=== PATIENT | female | born 1960 | race Caucasian/White ===

== ENCOUNTER 2024-10-02 14:44 | Outpatient (CLI) | payer MEDICARE, OTHER, SELFPAY ==
[2024-10-02 19:24] LABS: Hematocrit 45.3 % (37.0-47.0); Hemoglobin 15.3 g/dL (12.0-15.0); Mean Corpuscular HGB Conc 33.8 g/dl (32-36); Mean Corpuscular Hemoglobin 30.2 pg (26-34); Mean Corpuscular Volume 89.5 fl (80-100); Mean Platelet Volume 10.9 fl (7.4-10.4); Platelet Count Result 420 k/mm3 (150-375); Red Blood Count 5.06 M/mm3 (4.2-5.4); Red Cell Distribution Width 12.8 % (11.5-14.5); White Blood Count 8.6 K/mm3 (4.5-10.0)
[2024-10-02 19:29] LABS: Alanine Aminotransferase 16 U/L (6-35); Albumin Level 4.2 g/dL (3.5-5.1); Alkaline Phosphatase 101 U/L (38-126); Anion Gap 5 mmol/L (4-12); Aspartate Amino Transferase 68 U/L (14-36); Bilirubin,Total 1.2 mg/dL (0.2-1.3); Blood Urea Nitrogen 16 mg/dL (7-17); Calcium 9.2 mg/dL (8.4-10.2); Carbon Dioxide 30 mmol/L (22-30); Chloride 101 mmol/L (98-107); Cholesterol 135 mg/dL (0-200); Estimated Glomerular Filt Rate > 60; Glucose 101 mg/dL (65-110); HDL Direct 49 mg/dL; Potassium 4.4 mmol/L (3.4-5.0); Sodium 136 mmol/L (137-145); Triglycerides 123 mg/dL (<150)
[2024-10-02 19:51] LABS: LDL Cholesterol Direct 55 mg/dL
[2024-10-02 19:56] LABS: Thyroid Stimulating Hormone < 0.015 uIU/mL (0.465-4.680)
== END 2024-10-02 14:45 | disposition home or self-care (01) ==
PROVIDERS: PCP Nurse Practitioner Adult Health; Visit Provider Nurse Practitioner Adult Health
DX: E66.3 Overweight (principal)
CPT/HCPCS: 36415; 80053; 80061; 84443; 85027

== ENCOUNTER 2024-10-03 15:21 | Outpatient (CLI) | payer MEDICARE, OTHER, SELFPAY ==
[2024-10-03 20:21] LABS: Free T4 Free Thyroxine 1.73 ng/mL (0.78-2.19)
[2024-10-05 14:28] LABS: Thyroid Peroxidase Antibodies 1 IU/mL (<9)
== END 2024-10-03 15:22 | disposition home or self-care (01) ==
PROVIDERS: PCP Nurse Practitioner Adult Health; Visit Provider Nurse Practitioner Adult Health
DX: E07.9 Disorder of thyroid, unspecified (principal); R79.89 Other specified abnormal findings of blood chemistry
CPT/HCPCS: 36415; 84439; 86376

== ENCOUNTER 2024-10-06 10:40 | Outpatient (CLI) | payer MEDICARE, OTHER, SELFPAY ==
--- NOTE | ~2024-10-06 | US_ITS ---
EXAMINATION: US thyroid DATE: 10/06/2024 11:09 INDICATION: Other specified abnormal findings of blood chemistry. Abnormal thyroid function tests. TECHNIQUE: Multiple ultrasound images of the thyroid were obtained. COMPARISON: Chest CT 10/06/2024 FINDINGS: The right thyroid lobe measures 5.1 x 2.2 x 2.1 cm. The left thyroid lobe measures 4.2 x 1.1 x 1.5 c m. In the right thyroid lobe, there is a 1.8 cm solid, hypoechoic, wider than tall nodule with yung h margin without echogenic foci (TI-RADS TR4). In the left thyroid lobe, there is a 4 mm nodule. IMPRESSION: 1. Thyroid nodules. Ultrasound-guided fine-needle aspiration of the 1.8 cm right thyroid nodule is re commended. Reviewed, dictated and finalized at location A. SITTER IMPRESSION: 1. Thyroid nodules. Ultrasound-guided fine-needle aspiration of the 1.8 cm righ t thyroid nodule is recommended.
--- NOTE | ~2024-10-06 | CT_ITS ---
EXAMINATION:CT lung screening DATE: 10/06/2024 10:54 INDICATION: Personal history of nicotine dependence. Current smoker with 50 pack year history. TECHNIQUE: Computed tomography (CT) of the chest was performed without intravenous contrast. Automate d exposure control and iterative reconstruction technique were employed. The dose-length product (DLP ) was 82.22 mGy-cm. COMPARISON: None. FINDINGS: There is mild emphysema. There is mild atelectasis bilaterally. There is a 4 mm nodule at m inor fissure. No pleural effusion. The heart size is normal. No pericardial effusion. There is a 12 m m mass measuring low attenuation in left adrenal gland, consistent with an adenoma. There is severe t horacic spondylosis. IMPRESSION: 1. Lung-RADS category 2: Benign appearance or behavior. Continue annual screening with noncontrast lo w-dose chest CT in 12 months. Reviewed, dictated and finalized at location A. ENTARY EDUCATOR IMPRESSION: 1. Lung-RADS category 2: Benign appearance or behavior. Continue annual screeni ng with noncontrast low-dose chest CT in 12 months.
== END 2024-10-06 10:41 | disposition home or self-care (01) ==
LOC: MICIMG 10:42
PROVIDERS: PCP Nurse Practitioner Adult Health; Visit Provider Nurse Practitioner Adult Health
DX: Z12.2 Encounter for screening for malignant neoplasm of respiratory organs (principal); R79.89 Other specified abnormal findings of blood chemistry; E04.1 Nontoxic single thyroid nodule; Z87.891 Personal history of nicotine dependence
CPT/HCPCS: 71271; 76536

== ENCOUNTER 2024-11-10 12:23 | Outpatient (CLI) | payer MEDICARE, OTHER, SELFPAY ==
--- NOTE | ~2024-11-10 | US_ITS ---
EXAMINATION: US FNA w image guidance DATE: 11/10/2024 13:58 INDICATION: Right thyroid nodule TECHNIQUE: A time-out was performed to verify the patient's name, date of , and procedure to be performed . The procedure and its benefits and risks were discussed with the patient. Risks specifically discus sed included bleeding and infection. The patient understood the risks and agreed to proceed. The neck was prepped and draped in the usual sterile manner. 5 mL 1% lidocaine was used for local anesthesia . 8 passes were made with a 25G needle into the lesion. Appropriate needle location was documented with continuous sonographic guidance. A sterile bandage was applied. Approximately 10 minutes follow ing the conclusion of the procedure I was notified that the patient experienced a brief bout of nause a and vomiting with decrease in blood pressures with systolic blood pressures in the 80s and diastoli c pressures in the 40s. A directed the technologist to place the patient supine with her feet elevate d and then went to see the patient. The patient approximately 2 minutes later at which time this was feeling better with improvement of her nausea and her blood pressures had improved to the lung upper 130s over 80s. The patient was monitored for an additional 20 minutes without further incident and wa s asymptomatic at discharge. FINDINGS: Grayscale ultrasound images demonstrate biopsy needles advanced into the 1.8 cm TI-RADS 4 right thyro id nodule of concern. IMPRESSION: 1. Successful ultrasound-guided fine needle aspiration of the 1.8 cm TI-RADS 4 right thyroid nodule of concern. 2. Brief likely vasovagal episode following the conclusion of the procedure with nausea/vomiting and transient hypotension which resolved spontaneously within a couple minutes. Reviewed, dictated and finalized at location A. ATOR REPAIRER APPRENTICE IMPRESSION: 1. Successful ultrasound-guided fine needle aspiration of the 1.8 cm TI-RADS 4 right thyroid nodule of concern. 2. Brief likely vasovagal episode following the conclusion of the procedure wit h nausea/vomiting and transient hypotension which resolved spontaneously within a couple minutes.
== END 2024-11-10 12:24 | disposition home or self-care (01) ==
LOC: ANHIMG 12:24
PROVIDERS: PCP Nurse Practitioner Adult Health; Visit Provider Nurse Practitioner Adult Health
DX: E04.1 Nontoxic single thyroid nodule (principal)
CPT/HCPCS: 10005; 88172; 88173; 88177; 88305

== ENCOUNTER 2024-11-28 11:20 | Outpatient (CLI) | payer MEDICARE, OTHER, SELFPAY | END 2024-11-28 11:21 | disposition home or self-care (01) | PROVIDERS: PCP Nurse Practitioner Adult Health; Visit Provider Nurse Practitioner Adult Health | DX: R79.89 Other specified abnormal findings of blood chemistry (principal) | CPT/HCPCS: 36415 ==

== ENCOUNTER 2025-04-04 13:34 | Outpatient (CLI) | payer MEDICARE, OTHER, SELFPAY ==
--- NOTE | ~2025-04-04 | XR_ITS ---
3 VIEWS LUMBAR SPINE Ordering provider: Ya Centeno APRN History: . chronic low back pain radiating into hips . Comparison: None. FINDINGS: VERTEBRAL BODIES: No visible fracture or subluxation. Degenerative changes of the spine. Dextroscolio sis. DISK SPACES: Narrowing of all the disc spaces. Multilevel facet joint disease. SOFT TISSUES: Left kidney stone. IMPRESSION: No acute osseous abnormality lumbar spine. Multilevel degenerative disc disease. Dextroscoliosis. Left kidney stone. Reviewed, dictated and finalized at location A.
--- NOTE | ~2025-04-04 | XR_ITS ---
XR hip BI 2V w AP pelvis Ordering provider: Ya Centeno APRN History: . chronic low back pain radiating into hips . Comparison: None. FINDINGS: BONES: No acute fracture or dislocation. HIP JOINT SPACES: Mild osteoarthritic changes bilaterally. SACROILIAC JOINT SPACES/LUMBAR SPINE: The sacroiliac joint spaces are narrowed suggestive of sacroili itis.. Mild degenerative changes of the visualized lower lumbar spine. PUBIC SYMPHYSIS: Normal. SOFT TISSUES: Normal. IMPRESSION: No acute osseous abnormality of the bilateral hips and pelvis. Bilateral sacroiliitis, degenerative changes of the spine and osteoarthritic changes of the hips. Reviewed, dictated and finalized at location A. IMPRESSION: No acute osseous abnormality of the bilateral hips and pelvis. Bilateral sacroiliitis, degenerative changes of the spine and osteoarthritic ch anges of the hips.
== END 2025-04-04 13:35 | disposition home or self-care (01) ==
PROVIDERS: PCP Nurse Practitioner Adult Health; Visit Provider Nurse Practitioner Adult Health
DX: M51.360 Other intervertebral disc degeneration, lumbar region with discogenic back pain only (principal); M41.9 Scoliosis, unspecified; N20.0 Calculus of kidney
CPT/HCPCS: 72100; 73521

== ENCOUNTER 2025-04-18 12:32 | Outpatient (CLI) | payer MEDICARE, OTHER, SELFPAY ==
--- NOTE | ~2025-04-18 | CT_ITS ---
Non-contrast CT scan of the Abdomen and Pelvis Clinical indication: Kidney stone Technique: 2.5 mm axial scans were obtained through the abdomen and pelvis without intravenous or or al contrast. Dose reduction technique was used on this scan by utilizing automated exposure control a nd iterative reconstruction technique. The dose-length product (DLP) was 337.42 mGy-cm. Findings: Images through the lung bases reveal no abnormalities. There is medullary nephrocalcinosis bilaterally. 6 mm round nonobstructing left lower pole renal ston e present. No ureteral stone or hydronephrosis. The liver, spleen, pancreas, gallbladder, and right adrenal gland appear normal. There is low signal thickening of the left adrenal gland, either adenoma versus adrenal hyperplasia. There are atheroscle rotic calcifications of the aorta. . There is no evidence of bowel obstruction. Images through the pelvis were performed. There is no evidence of ascites or lymphadenopathy. Urinary bladder unremarkable. No pelvic mass seen. Impression: 6 mm nonobstructing left renal stone. Medullary nephrocalcinosis bilaterally. Reviewed, dictated and finalized at location . Impression: 6 mm nonobstructing left renal stone. Medullary nephrocalcinosis bilaterally.
--- OUTSIDE RECORDS SUMMARY | 2025-04-18 12:37 | XMS_ITS | Encounter Summary ---
Author Organization [facility] Address [address] [facility] [place] [address] Care Team Providers Care Low Voltage Technician Name Role Phone Unavailable Primary Care Provider Unavailabl e Reason for Visit * Reason Onset Date Comments Concerns 03/14/2024 Encounter Details Date Type Department Care Team (Late st Contact Info) Description 03/14/2024 Telephone [facility] [place] [facility] [facility] [address] [facility] [address] [place] [address] Crystal Busby MD [address] [place] [address] Concerns Social History Tobacco Use Types Packs/Day Years Used Date Smoking Tobacco: Every Day Cigarettes Smokeless Tobacco: Never Comments:Smoked 20+ years Alcohol Use Standard Drinks/Week Comments Never 0 (1 standard drink = 0.6 oz pur e alcohol) Comments No Sex and Gender Information Value Date Recorded Sex Assigned at Not on file Legal Sex Female 8:24 AM CDT Gender Identity Not on file Sexual Orientation Not on file documented as of this encounter Miscellaneous Notes * Telephone Encounter - Jim Redding RN - 03/14/2024 4:46 PM CDT Ms. Jeffers given Dr Busby's response. Fine to go back after 4 weeks. Will write letter w/ RTW date of 04/04. She would like it emailed to : [email or web address] Letter written and emailed. 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 Would like to know when she can go back to work. She never addressed this issue with her. She is fine if she has to be off 6 weeks if needed. She states she wants to do what Dr Busby feels is best. She doesn't want to do any damage to her surgical area. She is doing well, but bored. I thanked her for being so compliant! That is really appreciated. Will send to Dr Busby. Will call Harrison Aury back with Dr Busby's reply. * Telephone Encounter - Bianca Parks - 03/14/2024 2:23 PM CDT Patient called in because she had surgery Wednesday the patient wants to know when she can be cleared to go back to work. Thank You Bianca CB: [phone] documented in this encounter Plan of Treatment Not on file documented as of this encounter Visit Diagnoses Not on filedocumented in this encounter
--- OUTSIDE RECORDS SUMMARY | 2025-04-18 12:37 | XMS_ITS | Patient Health Record ---
Author Organization [facility] Address [address] [facility] [address] [place], [place] [address] Care Team Providers Care Sales Training Manager Name Role Phone Barry Chamorro Unavailable [phone] Migration, Provider Unavailable Unavailable Allergies Allergen (clinical drug ingredient) Drug/Non Drug Allergy documented on EMR Reaction Allergy Type Onset Date Status ciprofloxacin Cipro Unknown Drug Allergy Act sophia Reason For Referral No Information Medications Medication SIG (Take, Route, Frequency, Duration) Notes Start Date End Date Status ASTELIN 137 MCG/INH 2 SPRAY(S) INTRANASALLY BID for 30 DAY(S) *Please review for potential replacement for e-prescription and drug interaction check* 01/31/2020 Active EPIPEN 2-AUSTEN, RXBIN: [id number], RXPCN: LOYALTY, RX GRP: [id number], ULTRASOUND SPEC: [id number], ID: [id number] 0.3 MG 0.3 MG INTRAMUSCULARLY ONCE for 1 DOSE(S) *Please review for potential replacement for e-prescription and drug interaction check* Active Immunizations Vaccine Route Administration Date Status Comme nts Influenza Unknown 12/03/2016 Administered Influenza Unknown 12/23/2016 Refused Problems Problem Type SNOMED Code ICD Code Onset Dates Problem Status W/U Status Risk Notes Problem 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, 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 confirmed Problem Allergic rhinitis caused by pollen (disorder) (28393770) Allergic rhinitis due to pollen (J30.1) Active confirmed Problem Neoplasm of uncertain behavior of skin (56452788) 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.5) Active confirmed Problem Bilateral tinnitus (9596707056782 ) Tinnitus, bilateral (H93.13) Active confirmed Problem Allergic rhinitis caused by animal hair and dander (8869516001506 09) Allergic rhinitis due to animal (cat) (dog) hair and dander (J30.81) Active confirmed Problem Sensorineural hearing loss, unilateral, right ear, with unrestricted hearing on the contralateral side (H90.41) Active confirmed Problem Tinnitus (73938133) Tinnitus, right ear (H93.11) Active confirmed Encounters Encounter Location Date Provider Diagnosis [facility] [address] [place] [address] [place], [place] [address] 11/04/2024 Provider Migration Plan Of Treatment No Information Insurance Providers Payer Name Payer Address Payer Phone Subscriber Number Group Number Insured Name Patient Relationship to Insured Coverage Start Date Coverage End Date [employer] [address] [place] [address] [id number] Aury Moura Self - patient is the insured Medical (General) History Medical History History ICD Code eye, sinusitis, allergies, ear problems Surgical History Surgery Date(Month/Year)
--- OUTSIDE RECORDS SUMMARY | 2025-04-18 12:37 | XMS_ITS | Clinical Summary ---
Author Organization [facility] Medical Office Building B Address [address] [place] [address] Care Team Providers Care Pulverizer Operator Name Role Phone Ya Centeno NP Primary Care Provider [phone] Allergies Active Allergy Reactions Criticality Noted Date Comments Ciprofloxacin Nausea And Vomiting,Nausea only,Rash,Vomiting,Nause a & Vomiting Medium 09/28/2023 Reaction: Nausea, Vomiting, Reaction: Nausea, Vomiting, Medications Lumigan 0.01 % ophthalmic drops 3 Active triamcinolone (KENALOG) 0.1 % creamIndications: Skin Inflammation Apply topically 2 (two) times a day 30 g 1 4 Active estradiol-norethi ndrone (ACTIVELLA) 0.5-0.1 mg per tablet TAKE 1 TABLET BY MOUTH DAILY 84 tablet 2 5 02/08/20 26 Active Active Problems Problem Noted Date Diagnosed Date Pruritic condition 11/06/2024 Overview (11/06/2024): Left breast only with unknown etiology. Assessment & Plan (11/06/2024 12:34 PM PULVERIZER OPERATOR): States triamcinolone cream does help some. She would rather have cream instead of ointment, new prescription sent to pharmacy. Urge incontinence 09/28/2023 Skin hypopigmentation 09/28/2023 Hormone replacement therapy (HRT) 11/25/2021 Assessment & Plan (11/06/2024 12:26 PM PULVERIZER OPERATOR): Risks and benefits of hormone replacement (HRT) for vasomotor symptoms related to menopause discussed. Patient aware risks associated with HRT include increased risk of blood clots, heart attack, stroke, and increased risk of breast cancer. Patient verbalizes understanding of risk and benefits and wishes to proceed with HRT. - Continue oral combined hormone therapy, Activella. Patient/pharmacy will notify office when refills needed. Assessment & Plan (09/28/2023 10:11 AM PULVERIZER OPERATOR): Patient states she does not need any refills on her Activella at this time. Risks and benefits of hormone replacement (HRT) for vasomotor symptoms related to menopause discussed. Patient aware risks associated with HRT include increased risk of blood clots, heart attack, stroke, and increased risk of breast cancer. Patient verbalizes understanding of risk and benefits and wishes to proceed with HRT. Assessment & Plan (09/22/2022 10:04 AM CDT): Risks vs benefits of HRT discussed such as increased risk of blood clots leading to possible heart attack, stroke, and increased risk of breast cancer; pt. verbalizes understanding and wishes to continue with HRT. Continue yearly screening mammograms. Refill on Activella sent to patient's pharmacy. Assessment & Plan (11/25/2021 8:30 AM PULVERIZER OPERATOR): Risks vs benefits of HRT discussed such as increased risk of blood clots leading to possible heart attack, stroke, and increased risk of breast cancer; pt. verbalizes understanding and wishes to proceed with HRT.Plan to try low dose estrogen therapy as well as progesterone for prevention of hyperplasia. Will send in a combination therapy, Activella. If insurance will not pay for this, patient aware to call office and we can send in two separate medications. Encounter for screening colonoscopy 10/01/2020 Overview (10/01/2020): Added automatically from request for surgery [id number] Hepatitis C virus infection without hepatic coma 08/30/2018 Assessment & Plan (09/13/2018 2:53 PM CDT): Genotype 1a and quant returned Discussed rx options and will order mavyret 8 weeks with plans to check for SVT 12 weeks after compldtion of the regimen. Assessment & Plan (08/30/2018 3:56 PM CDT): Uncertain when or how infected but had and is cured and she got test just to see. Hep C positive si discussed possibility of carrier, cirrhosis, HCC. Agree a cure is desirable. Will get Hep C genotype and quantity and then decide on Rx. No pathologic diagnosis 10/05/2012 Overview (02/24/2017): No diagnosis Encounters Date Type Department Care Team Description 01/19/2025 Results Follow-Up [address] [place] [address] Tasha Whitten NP Diagnostic Mammogram Bilateral W Bol[place]ar from Last 3 Months Surgical History Surgery Date Site/Laterality Comments OTHER SURGICAL HISTORY 11/22/1984 - 11/21/1985 : 6 hr labor OTHER SURGICAL HISTORY 11/22/1986 - 11/21/1987 : 8 hr labor COLONOSCOPY 11/04/2020 First BREAST BIOPSY 01/25/2023 Left benign uls bx INCONTINENCE SURGERY Medical History Medical History Date Comments Hx Other Medical 1984 ; Outc ome: 40 week 7 lb(s) 1 oz Female Hx Other Medical 1986 ; Outc ome: 40 week 8 lb(s) 12 oz Male Glaucoma Smoking Seasonal allergies Hepatitis C Family History Medical History Relation Name Comments Throat cancer Brother 2 Throat cancer; Melanoma Maternal Grandmother Melanom a; Breast cancer Neg Hx Ovarian cancer Neg Hx Thyroid cancer Neg Hx Uterine cancer Neg Hx Relation Name Status Comments Brother 1 Alive Brother 2 Maternal Grandmother Alive Mother Social History Tobacco Use Types Packs/Day Years Used Date Smoking Tobacco: Every Day Cigarettes Smokeless Tobacco: Never Tobacco Cessation:Ready to Q uit: Not Asked; Counseling Given: Not Answered Comments:Smoking History Packs/day: 1 Packs Alcohol Use Standard Drinks/Week Comments No 0 (1 standard drink = 0.6 oz pur e alcohol) PHQ-2 Answer Date Recorded PHQ-2 Total Score (If total score is 3 or more points, staff should administer the PHQ-9) 0 11/06/2024 Comments No Sex and Gender Information Value Date Recorded Sex Assigned at Not on file Legal Sex Female 11:28 PM PULVERIZER OPERATOR Gender Identity Not on file Sexual Orientation Straight 05/24/2019 6: 10 PM CDT Obstetrics History Para Term AB IAB SAB Ectopic Multiple Livin g Live Births 3 2 2 1 Date Outcome GA Total Labor Labor/2nd/3rd Weight Sex Type Anes PTL Izabella A1 A5 Name Clin Term Term AB Last Filed Vital Signs Vital Sign Reading Time Taken Comments Blood Pressure 120/78 11/06/2024 9:21 AM PULVERIZER OPERATOR Pulse 115 01/25/2023 12:25 PM PULVERIZER OPERATOR Temperature 36.3 C (97.3 F) 01/25/2023 12:25 PM PULVERIZER OPERATOR Respiratory Rate 16 01/25/2023 12:25 PM PULVERIZER OPERATOR Oxygen Saturation 98% 11/04/2020 12:05 PM PULVERIZER OPERATOR Inhaled Oxygen Concentration - - Weight 84.1 kg (185 lb 6.4 oz) 11/06/2024 9:21 A M PULVERIZER OPERATOR Height 172.7 cm (5' 8) 12/18/2024 1:06 PM PULVERIZER OPERATOR Body Mass Index 28.19 11/06/2024 9:21 AM PULVERIZER OPERATOR Plan of Treatment Health Maintenance Due Date Last Done Comments Hepatitis B Screening 1977 Pneumococcal vaccine 65+ (1 of 2 - PCV) 1978 DTaP/Tdap/Td Vaccine (1 - Tdap) 04/02/2005 5 Zoster Vaccine (1 of 2) 2009 Fall Risk Assessment 11/04/2021 11/04/2020 Covid-19 Vaccine (5 - 2023-2 5 season) 2024 07/31/2022, 09/17/2021, 01/10/2021, Additional history exists Well Visit 65+ 09/28/2024 09/28/2023, 11/0 11/2021, 09/19/2021, Additional history exists Osteoporosis Screening-Bone Density Scan 11/19/2024 11/19/2022 Influenza Vaccine (Season Ended) 2025 12/03/19 17 Cervical Cancer Screening 11/06/20252023, 09/22/2022, 06/19/2019, Additional history exists Depression Screening 11/06/2025 11/06/2024, 09/28/2023, 09/22/2022, Additional history exists Breast Cancer Screening-Mammogram 12/18/2025 12/18/2024, 06/14/2024, 12/15/2023, Additional history exists Colon Cancer Screening-Colonoscopy 11/04/2030 11/04/2020 Hepatitis C Screening Completed 06/02/2019 , 06/02/2019, 06/02/2019, Additional history exists Colon Cancer Screening-CT Colonography Discontinued 11/04/2020 Colon Cancer Screening-DNA Stool Discontinued 11/04/20 20 Colon Cancer Screening-FIT Discontinued 11/04/2020 Colon Cancer Screening-Sigmoidoscopy Discontinued 11/04/2020 Procedures Procedure Name Priority Date/Time Associated Diagnosis Comments DIAGNOSTIC MAMMOGRAM BILATERAL W BOLIVAR Schedule Routine, Read Routine (OP Routine) 12/18/2024 1:13 PM PULVERIZER OPERATOR Abnormal mammogram of both breasts PAP WITH REFLEX TO HIGH RISK HPV Routine 11/06/2024 11:35 AM PULVERIZER OPERATOR Well woman exam DEXA AXIAL SKELETON BONE DENSITY 1 OR MORE SITES Schedule Routine, Read Routine (OP Routine) 11/19/2022 1:23 PM PULVERIZER OPERATOR Screening for osteoporosis COLONOSCOPY 11/04/2020 10:00 AM PULVERIZER OPERATOR HEPATITIS C RNA, QUANTITATIVE, PCR Routine 06/02/2019 1:34 PM CDT Hepatitis C virus infection without hepatic coma, unspecified chronicity from Last 3 Months or Most Recently Relevant to Health Maintenance Results * Diagnostic Mammogram Bilateral W [place] (12/18/2024 1:13 PM PULVERIZER OPERATOR) Anatomical Region Laterality Modality Breast Bilateral Mammography 12/18/2024 4:54 PM PULVERIZER OPERATOR Impressions 12/18/2024 4:54 PM PULVERIZER OPERATOR The findings are considered benign. No imaging findings to suggest malignancy are seen. The patient may return to screening mammography as per ACR guidelines. OVERALL FINAL ASSESSMENT: BI-RADS Category 2: Benign. Electronically signed by: Rafaela Gary M.D. Narrative 12/18/2024 4:54 PM PULVERIZER OPERATOR EXAMINATION: BILATERAL DIGITAL DIAGNOSTIC MAMMOGRAM INCLUDING CAD AND BILATERAL DIGITAL BREAST TOMOSYNTHESIS; BILATERAL BREAST SONOGRAM HISTORY: Follow-up COMPARISON: Multiple studies dating back to 11/23/2023 TECHNIQUE: Full field digital mammographic views of BOTH breasts were performed, including computer aided detection (CAD) and BILATERAL digital breast tomosynthesis (DBT). Directed ultrasound evaluation of BOTH breasts was performed. BREAST PARENCHYMAL COMPOSITION: There are scattered areas of fibroglandular density. MAMMOGRAM FINDINGS: There is a biopsy marker on the left. There are no suspicious masses. No suspicious calcifications are seen. There is no unexplained architectural distortion. There is no skin thickening seen. There are no mammographically abnormal lymph nodes seen in the axillae or elsewhere. SONOGRAM FINDINGS: There is a 3 mm cyst at 5:00 on the right, slightly decreased in size from the prior study and nearly anechoic currently. In the retroareolar region, there is a 3 mm cyst, better defined and closer to anechoic. It has decreased in size. There is a group of cysts in the right retroareolar region. The common glomerate measurement has decreased to 10 mm, where previously it was 11 to 12 mm. There are fewer cystic structures. Those cysts seen are anechoic. At 11:00 on the right, there is a 5 mm cyst, closer to anechoic than on the prior study. On the left at 6:00, there is a group of cysts which is similar in size to the prior study. The cysts seen are all anechoic, some of change its shape. There are no suspicious features. In the left retroareolar region, there is a 6 mm simple cyst, which previously contained echoes. Tasha Whitten NP IMG MAMMO PROCEDURES Final Resul t * Pap with reflex to High Risk HPV and Genotyping (Cytology Component) (11/06/2024 11:35 AM PULVERIZER OPERATOR) Thin prep (Pap test) 11/06/2024 11:35 AM PULVERIZER OPERATOR 11/06/2024 11:35 AM PULVERIZER OPERATOR Narrative PATHOLOGY CH - 11/08/2024 2:50 PM PULVERIZER OPERATOR [facility] Department of Pathology [address] [place] [address] Final Report Note to Patients: This report may contain a detailed description of human tissue sent by a health care provider to the laboratory for pathologic evaluation. The content of this report is essential for diagnosis and may provide important critical findings. This information may be unfamiliar to patients to review without a medical professional present. It is advised that the patient review this report in the presence of a health care provider who can answer questions and explain the details. Patient Name: AURY MOURA Address: [address] [place] [address]- Gender: F : 1960 (Age: 64) Service: Location: N : [id number] [facility] #: [id number] Patient Type: SPECIMEN Taken: 11/06/2024 Received: 11/06/2024 Accessioned:: 11/07/2024 Reported: 11/08/2024 Physician(s): DONNIE Quezada FNP Diagnosis: SOURCE OF SPECIMEN Imaged Thinprep Pap Test w/ Reflex HPV - Home Health Travel Pt Cytologic Material: STATEMENT OF ADEQUACY - Satisfactory for evaluation; endocervical/transformation zone component present GENERAL CATEGORIZATION: - Negative for intraepithelial lesion or malignancy KENNY Paniagua(ASCP) Report Electronically Reviewed and Signed Out By KENNY Paniagua(ASCP) 11/08/2024 14:50:54Specimen(s) Received: A: Imaged Thinprep Pap Test w/ Reflex HPV - Home Health Travel Pt Cytologic Material Clinical History: Menstrual History: Post-menopausal The Pap test is a screening test used to aid in the detection of cervical cancer and its precursors. It should not be the sole means by which malignant and premalignant lesions are diagnosed. Both false negative and false positive results may occur. It also has poor sensitivity for the detection of endometrial lesions and should not be used to evaluate suspected endometrial abnormalities. For these reasons it is most important to obtain Pap tests at regular intervals. The performance characteristics of some immunohistochemical stains, fluorescence in-situ hybridization tests and immunophenotyping by flow cytometry cited in this report (if any) were determined by the Surgical Pathology Department at [facility] as part of an ongoing chief vendor quality program and in compliance with federally mandated regulations drawn from the Clinical Laboratory Improvement Act of 1988 (CLIA '88). Some of these tests rely on the use of analyte specific reagents and are subject to specific labeling requirements by the US Food and Drug Administration. Such diagnostic tests may only be performed in a facility that is certified by the Department of Health and Human Services as a high complexity laboratory under CLIA '88. The FDA has determined that such clearance or approval is not necessary. This test is used for clinical purposes. It should not be regarded as investigational or for research. Nevertheless, federal rules concerning the medical use of analyte specific reagents require that the following disclaimer be attached to the report: This test was developed and its performance characteristics determined by the Surgical Pathology Department [facility]. It has not been cleared or approved by the U. S. Food and Drug Administration. Tasha Whitten NP LAB CYTOLOGY ORDERABLES Final Re sult PATHOLOGY [address] [place] [address] * Dexa Axial Skeleton Bone Density 1 or 2 Site (11/19/2022 1:23 PM PULVERIZER OPERATOR) Anatomical Region Laterality Modality Body N/A Other 11/20/2022 9:47 PM PULVERIZER OPERATOR Narrative 11/20/2022 9:50 PM PULVERIZER OPERATOR EXAM DESCRIPTION: DEXA AXIAL SKELETON BONE DENSITY 1 OR MORE SITES REASON FOR STUDY: 62 y/o year old F with given history of screening. Postmenopausal Secretary Office Clerk/Model: MiniTime Discovery SL (S/N [id number]) CLINICAL INFORMATION: Current height: 68 inches Maximum height: 68 inches Weight: 192 pounds Risk factors: Smoking history, postmenopausal COMPARISON: None available. FINDINGS: AP LUMBAR SPINE L1-L4: Total BMD is 1.282 g/cm2 T-score is 2.1 LEFT HIP: Total BMD is 0.905 g/cm2 T-score is -0.3 Femoral neck BMD is 0.794 g/cm2 T-score is -0.5 FRAX: FRAX not reported due to T-scores of hip, femoral neck and/or spine being at or above -1.0 (Normal). IMPRESSION: Based on the left femoral neck bone mineral density (T-score -0.5 ) the patient has normal bone mass . REFERENCE: Bone mineral density: Normal (T-score above or = -1.0) Low bone mass (T-score between -1.0 and -2.5) replaces the previously used term osteopenia Osteoporosis (T-score = or below -2.5) Medical evaluation for secondary causes of low bone mineral density may be appropriate. FRAX is a World Health Organization validated fracture risk assessment tool that calculates a person's 10 year probability of a major osteoporosis related fracture and hip fracture. According to the National Osteoporosis Foundation guidelines, postmenopausal women and men age 50 or older with low bone mass and a 10 year probability of a major osteoporosis related fracture = or greater than 20% or a 10 year probability of a hip fracture = or greater than 3% should be considered for treatment. For further information, including treatment recommendations, please refer to the 2013 ISCD Official Positions (http://www.iscd.org) and the NOF's Clinician's Guide to Prevention and Treatment of Osteoporosis (http://www.nof.org/professionals/clinical-guidelines) THIS IS AN ELECTRONICALLY VERIFIED FINAL REPORT 11/20/2022 9:50 PM - Electronically signed by David Clarke M.D. MF: ROEL Report ID: [id number] Reading Location: [place] [address] Procedure Note David Clarke MD - 11/20/2022 EXAM DESCRIPTION: DEXA AXIAL SKELETON BONE DENSITY 1 OR MORE SITES REASON FOR STUDY: 62 y/o year old F with given history ofscreening. Postmenopausal Secretary Office Clerk/Model: MiniTime Discovery SL (S/N [id number]) CLINICAL INFORMATION: Current height: 68 inches Maximum height: 68 inches Weight: 192 pounds Risk factors: Smoking history, postmenopausal COMPARISON: None available. FINDINGS: AP LUMBAR SPINE L1-L4: Total BMD is 1.282 g/cm2 T-score is 2.1 LEFT HIP: Total BMD is 0.905 g/cm2 T-score is -0.3 Femoral neck BMD is 0.794 g/cm2 T-score is -0.5 FRAX: FRAX not reported due to T-scores of hip, femoral neck and/or spine beingat or above -1.0 (Normal). IMPRESSION: Based on the left femoral neck bone mineral density (T-score -0.5 )the patient has normal bone mass . REFERENCE: Bone mineral density: Normal (T-score above or = -1.0) Low bone mass (T-score between -1.0 and -2.5) replaces thepreviously used term osteopenia Osteoporosis (T-score = or below -2.5) Medical evaluation for secondary causes of low bone mineral density may be appropriate. FRAX is a World Health Organization validated fracture risk assessmenttool that calculates a person's 10 year probability of a major osteoporosisrelated fracture and hip fracture. According to the National OsteoporosisFoundation guidelines, postmenopausal women and men age 50 or older with low bonemass and a 10 year probability of a major osteoporosis related fracture = or greater than 20% or a 10 year probability of a hip fracture = or greaterthan 3% should be considered for treatment. For further information, including treatment recommendations, please referto the 2013 ISCD Official Positions (http://www.iscd.org) and the NOF's Clinician's Guide to Prevention and Treatment of Osteoporosis (http://www.nof.org/professionals/clinical-guidelines) THIS IS AN ELECTRONICALLY VERIFIED FINAL REPORT 11/20/2022 9:50 PM - Electronically signed by David Clarke M.D. MF: ROEL Report ID: [id number] Reading Location: [place] [address] Tasha Whitten NP IMG DXA PROCEDURES Final Result * COLONOSCOPY (11/04/2020 10:00 AM PULVERIZER OPERATOR) Anatomical Region Laterality Modality Other Narrative Procedure Note Bobo Resendez MD - 11/04/2020 10:00 AM CST [facility] Patient Name: Aury Moura Procedure Date: 11/04/2020 10:00AM Date of : 1960 Admit Type: Outpatient Age: 60 Gender: Female Attending MD: Bobo Resendez M.D. Room: [facility] ENDOSCOPY ROOM 2 Note Status: Finalized Patient Profile: Refer to note in patient chart for documentation of history and physical. Procedure: Colonoscopy Indications: Screening for colorectal malignant neoplasm, This is the patient's first colonoscopy Referring MD: Padmini Hollis Providers: Bobo Resendez M.D. Impression: - Hemorrhoids found on perianal exam. - The entire examined colon is normal. - No specimens collected. Recommendation: - Discharge patient to home. - Resume previous diet. - Continue present medications. - Repeat colonoscopy in 10 years for screeningpurposes. - Return to primary care physician as previously scheduled. Medicines: Propofol per Anesthesia Complications: No immediate complications. Estimated Blood Loss: Estimated blood loss: none. Procedure: Pre-Anesthesia Assessment: - This assessment was completed [Time of Assessment] prior to the administration of sedation. The benefits, risks and alternatives of theprocedure and sedation were discussed and informed consent was obtained. All questions were answered. Please referto the signed informed consent document in the medical record. Bowel prep was administered using a single dose. The bowel preparation used was Miralax. Thebowel preparation used was bisacodyl tablets. The scopewas passed under direct vision. The [id number] was introduced through the anus andadvanced to the the cecum, identified by appendiceal orificeand ileocecal valve. The colonoscopy was performedwithout difficulty. The patient tolerated the procedurewell. The quality of the bowel preparation was adequate to identify polyps. Findings: Hemorrhoids were found on perianal exam. The colon (entire examined portion) appeared normal. Electronically signed by Bobo Resendez M.D. Bobo Resendez M.D. 11/04/2020 11:28:07 AM Number of Addenda: 0 Note Initiated On: 11/04/2020 10:00 AM Procedure Code(s): --- Professional --- G0121, Colorectal cancer screening; colonoscopy on individual not meeting criteria for high risk Diagnosis Code(s): --- Professional --- K64.9, Unspecified hemorrhoids Z12.11, Encounter for screening for malignant neoplasm of colon CPT copyright 2017 [employer]. All rights reserved. The codes documented in this report are preliminary and upon career services coordinator reviewmay be revised to meet current compliance requirements. Recognized by the [employer] for promoting quality in endoscopy Bobo Resendez MD ENDOSCOPY PROCEDURES Final Re sult * Hepatitis C (HCV) RNA PCR, quantitative (06/02/2019 1:34 PM CDT) HCV RNA qn Undetected Undetected IUnits/mL CECY PICKERING (ZULMA) Comment: Result in log IU/mL is Undetected. ADDITIONAL INFORMATION The quantification range of this assay is 15 to 100,000,000 IU/mL (1.18 log to 8.00 log IU/mL). Testing was performed using the ernie HCV test ([employer] with the ernie AMT ([employer])0 System. Test Performed by: [address] [address] Blood specimen (specimen) 06/02/2019 1:34 PM CDT 06/02/2019 1:51 PM CDT Bobo Resendez MD LAB MICROBIOLOGY - GENERAL OR DERABLES Final Result [facility] ZULMA) [facility] Department of [employer] [place] [id number] from Last 3 Months or Most Recently Relevant to Health Maintenance Insurance [employer] OPEN ACCESS [facility] Address: [facility] [address] [address] [place] [address] Advance Directives For more information, please contact: [phone] * Full Code (Latest Code Status on File) Date Activated Date Inactivated Comments 11/04/2020 10:23 AM 11/04/2020 4:27 PM * Full Code Date Activated Date Inactivated Comments 11/04/2020 10:23 AM 11/04/2020 10:23 AM Care Teams Pulverizer Operator Relationship Specialty Start Date End Date Ya Centeno NP [address] [place] [address] PCP - General Nurse Practitioner 10/20/24
--- OUTSIDE RECORDS SUMMARY | 2025-04-18 12:37 | XMS_ITS | Referral Summary ---
Author Organization [facility] Address [address] [place] [address] Care Team Providers Care Rag Sorter Name Role Phone Ya Centeno NP Primary Care Provider [phone] Encounters Date Type Department Care Team Description 01/19/2025 Results Follow-Up [facility] [address] [facility] [address] [place] [address] Tasha Whitten NP Diagnostic Mammogram Bilateral W Bolivar from Last 3 Months Allergies Active Allergy Reactions Criticality Noted Date [...] etiology. Assessment & Plan (11/06/2024 12:34 PM PAINT STOCKMAN): States triamcinolone cream does help some. She would rather have cream instead of ointment, new prescription sent to pharmacy. Urge incontinence 09/28/2023 Skin hypopigmentation 09/28/2023 Hormone replacement therapy (HRT) 11/25/2021 Assessment & Plan (11/06/2024 12:26 PM PAINT STOCKMAN): Risks and benefits of hormone replacement (HRT) [...] needed. Assessment & Plan (09/28/2023 10:11 AM PAINT STOCKMAN): Patient states she does not need any [...] pharmacy. Assessment & Plan (11/25/2021 8:30 AM PAINT STOCKMAN): Risks vs benefits of HRT discussed such [...] (10/01/2020): Added automatically from request for surgery [id number] Hepatitis C virus infection without hepatic coma [...] pathologic diagnosis 10/05/2012 Overview (02/24/2017): No diagnosis Social History Tobacco Use Types Packs/Day Years [...] on file Legal Sex Female 11:28 PM PAINT STOCKMAN Gender Identity Not on file Sexual Orientation Straight 05/24/2019 6: 10 PM CDT Last Filed Vital Signs Vital Sign Reading Time Taken Comments Blood Pressure 120/78 11/06/2024 9:21 AM PAINT STOCKMAN Pulse 115 01/25/2023 12:25 PM PAINT STOCKMAN Temperature 36.3 C (97.3 F) 01/25/2023 12:25 PM PAINT STOCKMAN Respiratory Rate 16 01/25/2023 12:25 PM PAINT STOCKMAN Oxygen Saturation 98% 11/04/2020 12:05 PM PAINT STOCKMAN Inhaled Oxygen Concentration - - Weight 84.1 kg (185 lb 6.4 oz) 11/06/2024 9:21 A M PAINT STOCKMAN Height 172.7 cm (5' 8) 12/18/2024 1:06 PM PAINT STOCKMAN Body Mass Index 28.19 11/06/2024 9:21 AM PAINT STOCKMAN Plan of Treatment Not on file Procedures Procedure Name Priority Date/Time Associated Diagnosis Comments DIAGNOSTIC MAMMOGRAM BILATERAL W BOLIVAR Schedule Routine, Read Routine (OP Routine) 12/18/2024 1:13 PM PAINT STOCKMAN Abnormal mammogram of both breasts PAP WITH REFLEX TO HIGH RISK HPV Routine 11/06/2024 11:35 AM PAINT STOCKMAN Well woman exam DEXA AXIAL SKELETON BONE DENSITY 1 OR MORE SITES Schedule Routine, Read Routine (OP Routine) 11/19/2022 1:23 PM PAINT STOCKMAN Screening for osteoporosis COLONOSCOPY 11/04/2020 10:00 AM PAINT STOCKMAN HEPATITIS C RNA, QUANTITATIVE, PCR Routine 06/02/2019 1:34 PM CDT Hepatitis C virus infection without hepatic coma, unspecified chronicity from Last 3 Months or Most Recently Relevant to Health Maintenance Results * Diagnostic Mammogram Bilateral W [place] (12/18/2024 1:13 PM PAINT STOCKMAN) Anatomical Region Laterality Modality Breast Bilateral Mammography 12/18/2024 4:54 PM PAINT STOCKMAN Impressions 12/18/2024 4:54 PM PAINT STOCKMAN The findings are considered benign. No imaging findings to suggest malignancy are seen. The patient may return to screening mammography as per ACR guidelines. OVERALL FINAL ASSESSMENT: BI-RADS Category 2: Benign. Electronically signed by: Rafaela Gary M.D. Narrative 12/18/2024 4:54 PM PAINT STOCKMAN EXAMINATION: BILATERAL DIGITAL DIAGNOSTIC MAMMOGRAM INCLUDING CAD [...] and Genotyping (Cytology Component) (11/06/2024 11:35 AM PAINT STOCKMAN) Thin prep (Pap test) 11/06/2024 11:35 AM PAINT STOCKMAN 11/06/2024 11:35 AM PAINT STOCKMAN Narrative PATHOLOGY CH - 11/08/2024 2:50 PM PAINT STOCKMAN [facility] Department of Pathology [address] [place] [address] Final Report Note to Patients: This report [...] the details. Patient Name: AURY MOURA Address: [address] [place] [address]- Gender: F : 1960 (Age: 64) Service: Location: [facility] #: [id number] Patient Type: SPECIMEN Taken: 11/06/2024 Received: 11/06/2024 Accessioned:: 11/07/2024 Reported: 11/08/2024 Physician(s): DONNIE Quezada FNP Diagnosis: SOURCE OF SPECIMEN Imaged Thinprep Pap Test w/ Reflex HPV - Objects Conservator Cytologic Material: STATEMENT OF ADEQUACY - Satisfactory for evaluation; endocervical/transformation zone component present GENERAL CATEGORIZATION: - Negative for intraepithelial lesion or malignancy KENNY Paniagua(ASCP) Report Electronically Reviewed and Signed Out By KENNY Paniagua(ASCP) 11/08/2024 14:50:54Specimen(s) Received: A: Imaged Thinprep Pap Test w/ Reflex HPV - Objects Conservator Cytologic Material Clinical History: Menstrual History: Post-menopausal [...] determined by the Surgical Pathology Department at [facility] as part of an ongoing supplier quality specialist program and in compliance with federally mandated [...] [facility]. It has not been cleared or approved by the U. S. Food and Drug Administration. us Tasha Whitten NP LAB CYTOLOGY ORDERABLES Final Re sult PATHOLOGY [address] [address] * Dexa Axial Skeleton Bone Density 1 or 2 Site (11/19/2022 1:23 PM PAINT STOCKMAN) Anatomical Region Laterality Modality Body N/A Other 11/20/2022 9:47 PM PAINT STOCKMAN Narrative 11/20/2022 9:50 PM PAINT STOCKMAN EXAM DESCRIPTION: DEXA AXIAL SKELETON BONE DENSITY 1 OR MORE SITES REASON FOR STUDY: 62 y/o year old F with given history of screening. 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 MF: ROEL Report ID: [id number] Reading Location: [id number] Procedure Note David Clarke MD - 11/20/2022 EXAM DESCRIPTION: DEXA AXIAL SKELETON BONE DENSITY 1 OR MORE SITES REASON FOR STUDY: 62 y/o year old F with given history ofscreening. 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 MF: ROEL Report ID: [id number] Reading Location: [place] [address] Tasha Whitten NP IMG DXA PROCEDURES Final Result * COLONOSCOPY (11/04/2020 10:00 AM PAINT STOCKMAN) Anatomical Region Laterality Modality Other Narrative Procedure Note Bobo Resendez MD - 11/04/2020 10:00 AM CST [facility] Patient Name: Aury Moura Procedure Date: 11/04/2020 10:00AM Date of : 1960 Admit Type: Outpatient Age: 60 Gender: Female Attending MD: Bobo Resendez M.D. Room: [facility] ENDOSCOPY ROOM 2 Note Status: Finalized Patient [...] The scopewas passed under direct vision. The [id number] was introduced through the anus andadvanced to [...] malignant neoplasm of colon CPT copyright 2017 [employer]. All rights reserved. The codes documented in this report are preliminary and upon product inspection supervisor reviewmay be revised to meet current compliance requirements. Recognized by the [employer] for promoting quality [...] performed using the ernie HCV test ([employer] with the ernie 6800 System. Test Performed by: [facility] [address] Blood specimen (specimen) 06/02/2019 1:34 PM CDT 06/02/2019 1:51 PM CDT Bobo Resendez MD LAB MICROBIOLOGY - GENERAL OR DERABLES Final Result CECY VALLE) [address] [facility] Department [place] [address] from Last 3 Months or Most Recently Relevant to Health Maintenance Insurance [employer] OPEN ACCESS MEDICARE [facility] [place] [address] Advance Directives For more information, please contact: [phone] * Full Code (Latest Code Status on File) Date Activated Date Inactivated Comments 11/04/2020 10:23 AM 11/04/2020 4:27 PM * Full Code Date Activated Date Inactivated Comments 11/04/2020 10:23 AM 11/04/2020 10:23 AM Care Teams Rag Sorter Relationship Specialty Start Date End Date Ya Centeno NP [address] [place] [address] PCP - General Nurse Practitioner 10/20/24
--- OUTSIDE RECORDS SUMMARY | 2025-04-18 12:38 | XMS_ITS | Encounter Summary ---
Author Organization [facility] Address [address] [facility] [place] [address] [address] Team [address] Care Ct Scan Tech Name Role Phone Unavailable Primary Care Provider Unavailabl e Encounter Details Date Type Department Care Team (Late st Contact Info) Description 02/08/2024 Telemedicine [facility] - FISHING ROD MECHANIC [address] [place] [address] Crystal Busby MD [address] [place] [address] Social History Tobacco Use Types Packs/Day Years Used Date Smoking Tobacco: Never Assessed Comments Unknown Sex and Gender Information Value Date Recorded Sex Assigned at Not on file Legal Sex Female 8:24 AM CDT Gender Identity Not on file Sexual Orientation Not on file documented as of this encounter Plan of Treatment Not on file documented as of this encounter Visit Diagnoses Not on filedocumented in this encounter
--- OUTSIDE RECORDS SUMMARY | 2025-04-18 12:38 | XMS_ITS ---
Author Organization [facility] Address [address] [facility] [address] [place], [place] [address] Care Team Providers Care Repeat Chief Name Role Phone Barry Chamorro Unavailable [phone] Migration, Provider Unavailable Unavailable Allergies Allergen (clinical drug ingredient) Drug/Non Drug Allergy documented on EMR Reaction Allergy Type Onset Date Status ciprofloxacin Cipro Unknown Drug Allergy Act sophia REASON FOR VISIT Multum To [facility] Conversion Encounter Medications Medication SIG (Take, Route, Frequency, Duration) Notes Start Date End Date Status ASTELIN 137 MCG/INH 2 SPRAY(S) INTRANASALLY BID for 30 DAY(S) *Please review for potential replacement for e-prescription and drug interaction check* 01/31/2020 Active EPIPEN 2-AUSTEN, RXBIN: [id number], RXPCN: PINO, RX GRP: [id number], MASS COMMUNICATIONS INSTRUCTOR: [id number], ID: [id number] 0.3 MG 0.3 MG INTRAMUSCULARLY ONCE for 1 DOSE(S) *Please review for potential replacement for e-prescription and drug interaction check* Active Encounters Encounter Location Date Provider Diagnosis [facility] [address] [facility] [address] [place], [place] [id number] 11/04/2024 Provider Migration Plan Of Treatment No Information Progress Notes * Courtney MOURAOB:1960 (64 yo F)Acc No.[id number]:11/04/2024 Patient: Aury BURROWS Provider: Jose walden Migration :1960 A ge:64 Y S ex:Female Date:11/04/2024 Address:[address] [place], [place] [id number] Subjective: * Chief Complaints: * 1 . Multum To Med[facility] Conversion Encounter. * Medical History: * Medications: T aking EPIPEN 2-AUSTEN, RXBIN: [id number], RXPCN: [id number], RX GRP: [id number], MASS COMMUNICATIONS INSTRUCTOR: [id number], ID: [id number] 0.3 MG KIT 0.3 MG INTRAMUSCULARLY ONCE , Notes to Pharmacist: *Please review for potential replacement for e-prescription and drug interaction check*, Taking ASTELIN 137 MCG/INH SPRAY 2 SPRAY(S) INTRANASALLY BID , Notes to Pharmacist: *Please review for potential replacement for e-prescription and drug interaction check* * Allergies: C ipro. Objective: * Vitals: * Physical Examination: Assessment: Plan: * Treatment: * * Electronic signature of Laura lynch Migration on 04/18/2025 at 12:37 PM CDT Sign off status: Pending * Provider: Jose walden Migration Date: 01/05/2024 Generated for Rossana galeano/Hammad/Frida on: 04/18/2025 12:37 PM CDT
--- OUTSIDE RECORDS SUMMARY | 2025-04-18 12:38 | XMS_ITS | Encounter Summary ---
Author Organization [facility] Address [address] [place] [address] Care Team Providers Care Manager Automotive Name Role Phone No, Physician Primary Care Provider [phone] Tasha Whitten NP Primary Care Provider [phone] No, Physician Primary Care Provider [phone] Ya Centeno RAIL PROJECT ENGINEER Primary Care Provider [phone] Encounter Details Date Type Department Care Team (Late st Contact Info) Description 11/18/2022 Telephone [facility] [address] [place] [address] Chey Ramirez, RT Social History Tobacco Use Types Packs/Day Years Used Date Smoking Tobacco: Every Day Cigarettes Smokeless Tobacco: Never Comments:Smoking History Pac ks/day: 1 Packs Alcohol Use Standard Drinks/Week Comments No 0 (1 standard drink = 0.6 oz pur e alcohol) PHQ-2 Answer Date Recorded PHQ-2 Total Score (If total score is 3 or more points, staff should administer the PHQ-9) 0 09/22/2022 Comments No Sex and Gender Information Value Date Recorded Sex Assigned at Not on file Legal Sex Female 11:28 PM SPECIAL EDUCATION DIRECTOR Gender Identity Not on file Sexual Orientation Straight 05/24/2019 6: 10 PM CDT documented as of this encounter Plan of Treatment Not on file documented as of this encounter Visit Diagnoses Not on filedocumented in this encounter Care Teams Manager Automotive Relationship Specialty Start Date End Date No, Physician PCP - General 11/10/22 11/20/22 Tasha Whitten NP [address] [address] [place] [address] PCP - General Obstetrics and Gynecology 11/21/2211/23 No, Physician PCP - General 12/20/23 10/19/24 Ya Centeno NP [address] [place] [address] PCP - General Nurse Practitioner 10/20/24 documented as of this encounter
--- OUTSIDE RECORDS SUMMARY | 2025-04-18 12:38 | XMS_ITS | Clinical Summary ---
Author Organization [facility] Address [address] [facility] [place] [address] Care Team Providers Care Welder Assistant Name Role Phone Unavailable Primary Care Provider Unavailabl e Source Comments [facility],non-owned Affiliates and Associated Physician Practices is amultiple site organization consisting of ambulatory clinics and hospital sitesin [place], [place], [place] and [place]. This disclosure is being madepursuant to the Care Everywhere program and may not contain all information available regarding this patient. Last updated 18.[facility] Allergies Active Allergy Reactions Criticality Noted Date Comments Ciprofloxacin Nausea and/or Vomiting,Rash Medium Reaction: Nausea, Vomiting, Medications * Be aware that medications may not be up to date on this document. Alwaysverify current medications with the patient. bimatoprost (Lumigan) 0.01 % ophth solution 3 Active estradiol-noret hindrone (Activella) 0.5-0.1 MG tablet Take 1 (one) tablet by mouth every 2 days 30 tablet 11 3 Active senna-docusate (Senokot-S) 8.6-50 MG tablet Take 2 (two) tablets by mouth once daily 60 tablet 4 Active ondansetron, disintegrating, (Zofran ODT) 4 MG tablet Take 1 (one) tablet by mouth every 6 hours as needed for Nausea/Vomiting Allow tablet to dissolve on the tongue 12 tablet 4 Active Additional Information Patient not taking.Reported on 03/29/2024 Active Problems Problem Noted Date Diagnosed Date Urinary incontinence, unspecified type Family History Medical History Relation Name Comments Other - Genetic Father pulmonary fi brosis Cancer Maternal Grandfather colon CAD (Coronary Artery Disease) Maternal Grandmother CAD (Coronary Artery Disease) Mother AF CVA Paternal Grandfather Relation Name Status Comments Father Maternal Grandfather Maternal Grandmother Mother Paternal Grandfather Social History Tobacco Use Types Packs/Day Years Used Date Smoking Tobacco: Every Day Cigarettes Smokeless Tobacco: Never Comments:Smoked 20+ years Alcohol Use Standard Drinks/Week Comments Never 0 (1 standard drink = 0.6 oz pur e alcohol) PHQ-2 Answer Date Recorded Patient Health Questionnaire-2 Score 0 03/22/2024 Comments No Sex and Gender Information Value Date Recorded Sex Assigned at Not on file Legal Sex Female 8:24 AM CDT Gender Identity Not on file Sexual Orientation Not on file Last Filed Vital Signs Vital Sign Reading Time Taken Comments Blood Pressure 124/62 03/29/2024 8:44 AM CDT Pulse 96 03/07/2024 2:10 PM CDT Temperature 37.1 C (98.8 F) 03/07/2024 12:37 PM CDT Respiratory Rate 16 03/07/2024 2:10 PM CDT Oxygen Saturation 91% 03/07/2024 1:31 PM CDT Inhaled Oxygen Concentration - - Weight 85.3 kg (188 lb) 03/29/2024 8:44 AM CDT Height 172.7 cm (5' 8) 03/29/2024 8:44 AM CDT Body Mass Index 28.59 03/29/2024 8:44 AM CDT Plan of Treatment Health Maintenance Due Date Last Done Comments COLOGUARD (AGES 45-75) - COLON CA SCREENING [address] COLONOGRAPHY - COLON CA SCREENING 1960 FLEX SIG - COLON CA SCREENING 1960 LIPID TESTING 1960 MEDICARE AWV 12 MONTHS 1960 PAP SMEAR 1960 HIV SCREENING 1974 HEPATITIS C SCREENING 05/29/1977 DTAP/TDAP/TD VACCINES (1 - Tdap) 1978 PNEUMOCOCCAL VACCINE 50+ (1 of 2 - PCV) 1978 ZOSTER VACCINE (1 of 2) 2009 FIT - COLON CA SCREENING 06/19/2020 06/19/2019, 05/23 SCREENING FOR DIABETES 02/10/2024 COVID-19 VACCINE ( season) 2024 07/31/2022, 09/17/2021, 01/10/2021, Additional history exists DEPRESSION SCREENING 11/22/2024 03/29/2024 INFLUENZA VACCINE (Season Ended) 2025 MAMMOGRAM 12/15/2025 12/15/2023, 12/2023, 11/23/2023, Additional history exists COLONOSCOPY - COLON CA SCREENING 11/04/2030 11/04/2020 Colorectal Cancer Screening 11/04/2030 Respiratory Syncytial Virus (RSV) Vaccine Pt: or over 60 yrs (1 - 1-dose 75+ series) 2034 BONE DENSITY TESTING Completed 11/19/2022 HEPATITIS B VACCINE Aged Out No longe r eligible based on patient's age to complete this topic HIB VACCINE Aged Out No longer eligi ble based on patient's age to complete this topic HPV VACCINE Aged Out No longer eligi ble based on patient's age to complete this topic MENINGOCOCCAL (Group B) VACCINE SHARED DECISION-MAKING Aged Out No longer eligible based on patient's age to complete this topic MENINGOCOCCAL GROUPS A/C/Y/W VACCINE Aged Out No longer eligible based on patient's age to complete this topic Medical Devices Implanted Type Area Flight Attendant/Inflight Supervisor Device Identifier Shelf Expiration Date Model / Serial / Lot Sys Ureth Supp Chandana Lynx Adv Spbc Implanted:Qty: 1 on 03/07/2024 by Crystal Busby MD at [facility] N/A: Vagina [employer] 06/22/2026 [id number] / / [id number] Insurance [facility] MEDICARE Advance Directives Documents on File Type Date Recorded Patient Customs Manager Expl anation Adv Directive/Living Will/POA 03/10/2024 8:21 PM
== END 2025-04-18 12:33 | disposition home or self-care (01) ==
PROVIDERS: PCP Nurse Practitioner Adult Health; Visit Provider Nurse Practitioner Adult Health
DX: E83.59 Other disorders of calcium metabolism (principal); N29 Other disorders of kidney and ureter in diseases classified elsewhere
CPT/HCPCS: 74176

== ENCOUNTER 2025-06-29 10:39 | Outpatient (CLI) | payer MEDICARE, OTHER, SELFPAY ==
--- OUTSIDE RECORDS SUMMARY | 2025-06-29 10:41 | XMS_ITS | Clinical Summary ---
Author Organization [facility] Address [address] [facility] [place] [address] Care Team Providers Care Television News Video Editor Name Role Phone Unavailable Primary Care Provider Unavailabl e Source Comments [facility],non-owned Affiliates and Associated Physician Practices is amultiple site organization consisting of ambulatory clinics and hospital sitesin [place], [place], [place] and [place]. This disclosure is being madepursuant to the Care Everywhere program and may not contain all information available regarding this patient. Last updated 18.[facility] Allergies Active Allergy Reactions Criticality Noted Date [...] (AGES 45-75) - COLON CA SCREENING 1959 CT COLONOGRAPHY - COLON CA SCREENING 1959 FLEX SIG - COLON CA SCREENING 1959 LIPID TESTING 1960 MEDICARE AWV 12 MONTHS 1959 HEPATITIS C SCREENING 05/29/1977 DTAP/TDAP/TD VACCINES (1 - Tdap) 1978 PNEUMOCOCCAL VACCINE 50+ (1 of 2 - PCV) 1978 ZOSTER VACCINE (1 of 2) 2009 FIT - COLON CA SCREENING 06/19/2020 06/19/2019, 05/23 SCREENING FOR DIABETES 02/10/2024 COVID-19 VACCINE ( season) 2024 07/31/2022, 09/17/2021, 01/10/2021, Additional history exists DEPRESSION SCREENING 11/22/2024 03/29/2024 INFLUENZA VACCINE (#1) 2025 MAMMOGRAM 12/15/2025 12/15/2023, 12/2023, 11/23/2023, Additional history exists COLON MONITORING 11/04/2030 11/04/2020 COLONOSCOPY - COLON CA SCREENING 11/04/2030 11/04/2020 [...] this topic Medical Devices Implanted Type Area English Composition Instructor Device Identifier Shelf Expiration Date Model / Serial / Lot Sys Ureth Supp Chandana Lynx Adv Spbc Implanted:Qty: 1 on 03/07/2024 by Crystal Busby MD at [facility] N/A: Vagina [place] [employer] 06/22/2026 [id number] / / [id number] Insurance [facility] MEDICARE Advance Directives Documents on File Type Date Recorded Patient Storyboard Artist Expl anation Adv Directive/Living Will/POA 03/10/2024 8:21 PM
--- OUTSIDE RECORDS SUMMARY | 2025-06-29 10:41 | XMS_ITS | Encounter Summary ---
Author Organization [facility] Address [address] [facility] [place] [address] Care Team Providers Care Affirmative Action Officer Name Role Phone Unavailable Primary Care Provider Unavailabl e Encounter Details Date Type Department Care Team (Late st Contact Info) Description 02/08/2024 Telemedicine [facility] - VICE PRESIDENT OF PROCUREMENT [address] [place] [address] Crystal Busby MD [address] [place] [address] Social History Tobacco Use Types [...]
--- OUTSIDE RECORDS SUMMARY | 2025-06-29 10:41 | XMS_ITS | Encounter Summary ---
Author Organization [facility] Address [address] [place] [address] Care Team Providers Care Research Kennel Supervisor Name Role Phone Unavailable Primary Care Provider Unavailabl e Reason for Visit * Reason Onset Date Comments Concerns 03/14/2024 Encounter Details Date Type Department Care Team (Late st Contact Info) Description 03/14/2024 Telephone [facility] - RIG OPERATOR [address] [facility] [address] [place] [address] Crystal Busby MD [address] [place] [address] Concerns Social History Tobacco Use [...] She would like it emailed to : [email or web address] Letter written and emailed. * Telephone Encounter [...] back to work. Thank You Bianca CB: [phone] documented in this encounter Plan of Treatment Not on file documented as of this encounter Visit Diagnoses Not on filedocumented in this encounter
--- OUTSIDE RECORDS SUMMARY | 2025-06-29 10:41 | XMS_ITS | Clinical Summary ---
Author Organization [facility] Medical Office Building B Address [address] [place] [address] Care Team Providers Care Loss Prevention Detective Name Role Phone Ya Centeno NP Primary Care Provider Allergies Active Allergy Reactions Criticality Noted Date [...] etiology. Assessment & Plan (11/06/2024 12:34 PM COMPLEX HUMAN RESOURCES MANAGER): States triamcinolone cream does help some. She would rather have cream instead of ointment, new prescription sent to pharmacy. Urge incontinence 09/28/2023 Skin hypopigmentation 09/28/2023 Hormone replacement therapy (HRT) 11/25/2021 Assessment & Plan (11/06/2024 12:26 PM COMPLEX HUMAN RESOURCES MANAGER): Risks and benefits of hormone replacement (HRT) [...] needed. Assessment & Plan (09/28/2023 10:11 AM COMPLEX HUMAN RESOURCES MANAGER): Patient states she does not need any [...] pharmacy. Assessment & Plan (11/25/2021 8:30 AM COMPLEX HUMAN RESOURCES MANAGER): Risks vs benefits of HRT discussed such [...] (10/01/2020): Added automatically from request for surgery [id number] Hepatitis C virus infection without hepatic coma [...] pathologic diagnosis 10/05/2012 Overview (02/24/2017): No diagnosis Surgical History Surgery Date Site/Laterality Comments OTHER [...] on file Legal Sex Female 11:28 PM COMPLEX HUMAN RESOURCES MANAGER Gender Identity Not on file Sexual Orientation [...] Comments Blood Pressure 120/78 11/06/2024 9:21 AM COMPLEX HUMAN RESOURCES MANAGER Pulse 115 01/25/2023 12:25 PM COMPLEX HUMAN RESOURCES MANAGER Temperature 36.3 C (97.3 F) 01/25/2023 12:25 PM COMPLEX HUMAN RESOURCES MANAGER Respiratory Rate 16 01/25/2023 12:25 PM COMPLEX HUMAN RESOURCES MANAGER Oxygen Saturation 98% 11/04/2020 12:05 PM COMPLEX HUMAN RESOURCES MANAGER Inhaled Oxygen Concentration - - Weight 84.1 kg (185 lb 6.4 oz) 11/06/2024 9:21 A M COMPLEX HUMAN RESOURCES MANAGER Height 172.7 cm (5' 8) 12/18/2024 1:06 PM COMPLEX HUMAN RESOURCES MANAGER Body Mass Index 28.19 11/06/2024 9:21 AM COMPLEX HUMAN RESOURCES MANAGER Plan of Treatment Health Maintenance Due Date [...] Screening-Bone Density Scan 11/19/2024 11/19/2022 Influenza Vaccine (#1) 2025 12/03/2016 Depression Screening 11/06/2025 11/06/2024, 09/28/2023, 09/22/2022, Additional history exists Breast Cancer Screening-Mammogram 12/18/2025 12/18/2024, 06/14/2024, 12/15/2023, Additional history exists Colon Cancer Screening-Colonoscopy 11/04/2030 11/04/2020 Hepatitis C Screening Completed 06/02/2019 , 06/02/2019, 06/02/2019, Additional history exists Colon Cancer Screening-CT Colonography Discontinued 11/04/2020 Colon Cancer Screening-DNA Stool Discontinued 11/04/20 20 Colon Cancer Screening-FIT Discontinued 11/04/2020 Colon Cancer Screening-Sigmoidoscopy Discontinued 11/04/2020 Cervical Cancer Screening Discontinued 2023, 09/22/2022, 06/19/2019, Additional history exists Procedures Procedure Name Priority Date/Time Associated Diagnosis Comments DIAGNOSTIC MAMMOGRAM BILATERAL W BOLIVAR Schedule Routine, Read Routine (OP Routine) 12/18/2024 1:13 PM COMPLEX HUMAN RESOURCES MANAGER Abnormal mammogram of both breasts PAP WITH REFLEX TO HIGH RISK HPV Routine 11/06/2024 11:35 AM COMPLEX HUMAN RESOURCES MANAGER Well woman exam DEXA AXIAL SKELETON BONE DENSITY 1 OR MORE SITES Schedule Routine, Read Routine (OP Routine) 11/19/2022 1:23 PM COMPLEX HUMAN RESOURCES MANAGER Screening for osteoporosis COLONOSCOPY 11/04/2020 10:00 AM COMPLEX HUMAN RESOURCES MANAGER HEPATITIS C RNA, QUANTITATIVE, PCR Routine 06/02/2019 1:34 PM CDT Hepatitis C virus infection without hepatic coma, unspecified chronicity from Last 3 Months or Most Recently Relevant to Health Maintenance Results * Diagnostic Mammogram Bilateral W Bolivar (12/18/2024 1:13 PM COMPLEX HUMAN RESOURCES MANAGER) Anatomical Region Laterality Modality Breast Bilateral Mammography 12/18/2024 4:54 PM COMPLEX HUMAN RESOURCES MANAGER Impressions 12/18/2024 4:54 PM COMPLEX HUMAN RESOURCES MANAGER The findings are considered benign. No imaging findings to suggest malignancy are seen. The patient may return to screening mammography as per ACR guidelines. OVERALL FINAL ASSESSMENT: BI-RADS Category 2: Benign. Electronically signed by: Rafaela Gary M.D. Narrative 12/18/2024 4:54 PM COMPLEX HUMAN RESOURCES MANAGER EXAMINATION: BILATERAL DIGITAL DIAGNOSTIC MAMMOGRAM INCLUDING CAD [...] mm simple cyst, which previously contained echoes. us Tasha Whitten NP IMG MAMMO PROCEDURES Final Resul t * Pap with reflex to High Risk HPV and Genotyping (Cytology Component) (11/06/2024 11:35 AM COMPLEX HUMAN RESOURCES MANAGER) Thin prep (Pap test) 11/06/2024 11:35 AM COMPLEX HUMAN RESOURCES MANAGER 11/06/2024 11:35 AM COMPLEX HUMAN RESOURCES MANAGER Narrative PATHOLOGY - 11/08/2024 2:50 PM COMPLEX HUMAN RESOURCES MANAGER [facility] Department of Pathology [address] [place] [address] Final Report Note to Patients: This report [...] the details. Patient Name: AURY MOURA Address: [address] [place] [address]- Gender: F : 1960 (Age: 64) Service: Location: [facility] #: [id number] Patient Type: SPECIMEN Taken: 11/06/2024 Received: 11/06/2024 Accessioned:: 11/07/2024 Reported: 11/08/2024 Physician(s): DONNIE Quezada FNP Diagnosis: SOURCE OF SPECIMEN Imaged Thinprep Pap Test w/ Reflex HPV - Nursing Home Admissions Director Cytologic Material: STATEMENT OF ADEQUACY - Satisfactory for evaluation; endocervical/transformation zone component present GENERAL CATEGORIZATION: - Negative for intraepithelial lesion or malignancy KENNY Paniagua(ASCP) Report Electronically Reviewed and Signed Out By KENNY Paniagua(ASCP) 11/08/2024 14:50:54Specimen(s) Received: A: Imaged Thinprep Pap Test w/ Reflex HPV - Nursing Home Admissions Director Cytologic Material Clinical History: Menstrual History: Post-menopausal [...] determined by the Surgical Pathology Department at [facility] as part of an ongoing fiberglass quality technician program and in compliance with federally mandated [...] characteristics determined by the Surgical Pathology Department [facility]. It has not been cleared or approved by the U. S. Food and Drug Administration. Tasha Whitten NP LAB CYTOLOGY ORDERABLES Final Re sult PATHOLOGY [address] [place], [place] [id number] * Dexa Axial Skeleton Bone Density 1 or 2 Site (11/19/2022 1:23 PM COMPLEX HUMAN RESOURCES MANAGER) Anatomical Region Laterality Modality Body N/A Other 11/20/2022 9:47 PM COMPLEX HUMAN RESOURCES MANAGER Narrative 11/20/2022 9:50 PM COMPLEX HUMAN RESOURCES MANAGER EXAM DESCRIPTION: DEXA AXIAL SKELETON BONE DENSITY 1 OR MORE SITES REASON FOR STUDY: 62 y/o year old F with given history of screening. Postmenopausal Banana Carrier/Model: Qualvu SL (S/N [id number]) CLINICAL INFORMATION: Current height: 68 inches Maximum [...] David Clarke M.D. MF: ROEL Report ID: [id number] Reading Location: [address] Note David Clarke MD - 11/20/2022 EXAM DESCRIPTION: DEXA AXIAL SKELETON BONE DENSITY 1 OR MORE SITES REASON FOR STUDY: 62 y/o year old F with given history ofscreening. Postmenopausal Banana Carrier/Model: Edgar Discovery SL (S/N [id number]) CLINICAL INFORMATION: Current height: 68 inches Maximum [...] David Clarke M.D. MF: ROEL Report ID: [id number] Reading Location: [place] [address] Tasha Whitten NP IMG DXA PROCEDURES Final Result * COLONOSCOPY (11/04/2020 10:00 AM COMPLEX HUMAN RESOURCES MANAGER) Anatomical Region Laterality Modality Other Narrative Procedure Note Bobo Resendez MD - 11/04/2020 10:00 AM CST [facility] Patient Name: Aury Moura Procedure Date: 11/04/2020 10:00AM Date of : 1960 Admit Type: Outpatient Age: 60 Gender: Female Attending MD: Bobo Resendez M.D. Room: [facility] ENDOSCOPY ROOM 2 Note Status: Finalized [...] The scopewas passed under direct vision. The [id number] was introduced through the anus andadvanced to [...] malignant neoplasm of colon CPT copyright 2017 [employer]. All rights reserved. The codes documented in this report are preliminary and upon profile saw setup operator reviewmay be revised to meet current compliance requirements. Recognized by the [employer] [employer] for promoting quality in endoscopy Bobo Resendez MD ENDOSCOPY PROCEDURES Final Re sult * Hepatitis C (HCV) RNA PCR, quantitative (06/02/2019 1:34 PM CDT) HCV RNA qn Undetected Undetected IUnits/mL CECY PICKERING ([place]TES[place]) Comment: Result in log IU/mL is Undetected. ADDITIONAL INFORMATION The quantification range of this assay is 15 to 100,000,000 IU/mL (1.18 log to 8.00 log IU/mL). Testing was performed using the ernie HCV test ([employer] with the ernie 6800 System. Test Performed by: [facility] - [address] [address] Blood specimen (specimen) 06/02/2019 1:34 PM CDT 06/02/2019 1:51 PM CDT Bobo Resendez MD LAB MICROBIOLOGY - GENERAL OR DERABLES Final Result CECY PICKERING ([place]TES[place]) 1 [facility] Department [place] [address] from Last 3 Months or Most Recently Relevant to Health Maintenance Insurance [facility] [place] [address] Advance Directives For more information, please contact: [phone] * Full Code (Latest Code Status on File) Date Activated Date Inactivated Comments 11/04/2020 10:23 AM 11/04/2020 4:27 PM * Full Code Date Activated Date Inactivated Comments 11/04/2020 10:23 AM 11/04/2020 10:23 AM Care Teams Loss Prevention Detective Relationship Specialty Start Date End Date Ya Centeno NP [address] [place] [address] PCP - General Nurse Practitioner 10/20/24
--- OUTSIDE RECORDS SUMMARY | 2025-06-29 10:41 | XMS_ITS | Encounter Summary ---
Author Organization [facility] Healthcare Address [address] [place] [address] Care Team Providers Care Steel Roller Name Role Phone No, Physician Primary Care Provider [phone] Tasha Whitten NP Primary Care Provider [phone] No, Physician Primary Care Provider [phone] Ya Centeno ASSISTANT REFINERY OPERATOR Primary Care Provider [phone] Encounter Details Date Type Department Care Team (Late st Contact Info) Description 11/18/2022 Telephone [facility] [address] [place] [address] Chey Ramirez, RT Social History Tobacco Use [...] on file Legal Sex Female 11:28 PM DENSITOMETRIST Gender Identity Not on file Sexual Orientation Straight 05/24/2019 6: 10 PM CDT documented as of this encounter Plan of Treatment Not on file documented as of this encounter Visit Diagnoses Not on filedocumented in this encounter Care Teams Steel Roller Relationship Specialty Start Date End Date No, Physician PCP - General 11/10/22 11/20/22 Tasha Whitten NP [address] [place] [address] [place] [address] PCP - General Obstetrics and Gynecology 11/21/2211/23 No, Physician PCP - General 12/20/23 10/19/24 Ya Centeno NP [address] [place] [address] PCP - General Nurse Practitioner 10/20/24 documented as of this encounter
[2025-06-29 11:44] LABS: Alanine Aminotransferase 18 U/L (6-35); Albumin Level 4.2 g/dL (3.5-5.1); Alkaline Phosphatase 101 U/L (38-126); Anion Gap 10 mmol/L (4-12); Aspartate Amino Transferase 27 U/L (14-36); Bilirubin,Total 1.5 mg/dL (0.2-1.3); Blood Urea Nitrogen 15 mg/dL (7-17); Calcium 9.3 mg/dL (8.4-10.2); Carbon Dioxide 27 mmol/L (22-30); Chloride 102 mmol/L (98-107); Estimated Glomerular Filt Rate > 60; Glucose 102 mg/dL (65-110); Potassium 4.1 mmol/L (3.4-5.0); Sodium 139 mmol/L (137-145); Total Protein 7.6 g/dL (6.3-8.2)
[2025-06-29 12:20] LABS: Thyroid Stimulating Hormone < 0.015 uIU/mL (0.465-4.680); Total Triiodothyronine (T3) 2.06 NG/ML (0.82-1.58)
[2025-06-29 12:25] LABS: Free T4 Free Thyroxine 1.85 ng/dL (0.78-2.19)
[2025-07-05 09:08] LABS: Creatinine, Random U 78.9 mg/dL (Not Estab.); Metanephrine, Ur 95 ug/L (Undefined)
== END 2025-06-29 10:40 | disposition home or self-care (01) ==
PROVIDERS: PCP Nurse Practitioner Adult Health; Visit Provider Internal Medicine
DX: E66.3 Overweight (principal); R79.89 Other specified abnormal findings of blood chemistry; E07.9 Disorder of thyroid, unspecified; E04.1 Nontoxic single thyroid nodule; E27.8 Other specified disorders of adrenal gland
CPT/HCPCS: 36415; 80053; 82088; 82570; 82627; 83520; 83835; 84439; 84443; 84445; 84480; 86376; 86800

== ENCOUNTER 2025-07-05 08:07 | Outpatient (CLI) | payer MEDICARE, OTHER, SELFPAY ==
--- OUTSIDE RECORDS SUMMARY | 2025-07-05 08:10 | XMS_ITS | Clinical Summary ---
Author Organization [facility] Medical Office Building B Address [address] [place] [address] Care Team Providers Care Customizer Name Role Phone Ya Centeno NP Primary Care Provider [phone] Allergies Active Allergy Reactions Criticality Noted Date [...] etiology. Assessment & Plan (11/06/2024 12:34 PM LADLE FILLER): States triamcinolone cream does help some. She would rather have cream instead of ointment, new prescription sent to pharmacy. Urge incontinence 09/28/2023 Skin hypopigmentation 09/28/2023 Hormone replacement therapy (HRT) 11/25/2021 Assessment & Plan (11/06/2024 12:26 PM LADLE FILLER): Risks and benefits of hormone replacement (HRT) [...] needed. Assessment & Plan (09/28/2023 10:11 AM LADLE FILLER): Patient states she does not need any [...] pharmacy. Assessment & Plan (11/25/2021 8:30 AM LADLE FILLER): Risks vs benefits of HRT discussed such [...] (10/01/2020): Added automatically from request for surgery [id number] Hepatitis C virus infection without hepatic coma [...] on file Legal Sex Female 11:28 PM LADLE FILLER Gender Identity Not on file Sexual Orientation [...] Comments Blood Pressure 120/78 11/06/2024 9:21 AM LADLE FILLER Pulse 115 01/25/2023 12:25 PM LADLE FILLER Temperature 36.3 C (97.3 F) 01/25/2023 12:25 PM LADLE FILLER Respiratory Rate 16 01/25/2023 12:25 PM LADLE FILLER Oxygen Saturation 98% 11/04/2020 12:05 PM LADLE FILLER Inhaled Oxygen Concentration - - Weight 84.1 kg (185 lb 6.4 oz) 11/06/2024 9:21 A M LADLE FILLER Height 172.7 cm (5' 8) 12/18/2024 1:06 PM LADLE FILLER Body Mass Index 28.19 11/06/2024 9:21 AM LADLE FILLER Plan of Treatment Health Maintenance Due Date [...] Read Routine (OP Routine) 12/18/2024 1:13 PM LADLE FILLER Abnormal mammogram of both breasts PAP WITH REFLEX TO HIGH RISK HPV Routine 11/06/2024 11:35 AM LADLE FILLER Well woman exam DEXA AXIAL SKELETON BONE DENSITY 1 OR MORE SITES Schedule Routine, Read Routine (OP Routine) 11/19/2022 1:23 PM LADLE FILLER Screening for osteoporosis COLONOSCOPY 11/04/2020 10:00 AM LADLE FILLER HEPATITIS C RNA, QUANTITATIVE, PCR Routine 06/02/2019 1:34 PM CDT Hepatitis C virus infection without hepatic coma, unspecified chronicity from Last 3 Months or Most Recently Relevant to Health Maintenance Results * Diagnostic Mammogram Bilateral W Bolivar (12/18/2024 1:13 PM LADLE FILLER) Anatomical Region Laterality Modality Breast Bilateral Mammography 12/18/2024 4:54 PM LADLE FILLER Impressions 12/18/2024 4:54 PM LADLE FILLER The findings are considered benign. No imaging findings to suggest malignancy are seen. The patient may return to screening mammography as per ACR guidelines. OVERALL FINAL ASSESSMENT: BI-RADS Category 2: Benign. Electronically signed by: Rafaela Gary M.D. Narrative 12/18/2024 4:54 PM LADLE FILLER EXAMINATION: BILATERAL DIGITAL DIAGNOSTIC MAMMOGRAM INCLUDING CAD [...] and Genotyping (Cytology Component) (11/06/2024 11:35 AM LADLE FILLER) Thin prep (Pap test) 11/06/2024 11:35 AM LADLE FILLER 11/06/2024 11:35 AM LADLE FILLER Narrative PATHOLOGY - 11/08/2024 2:50 PM LADLE FILLER [facility] Department of Pathology [address] [place] [address] Final Report Note to Patients: This [...] the details. Patient Name: AURY MOURA Address: [address] [place] [address]- Gender: F : 1960 (Age: 64) Service: Location: [facility] #: [id number] Patient Type: SPECIMEN Taken: 11/06/2024 Received: 11/06/2024 Accessioned:: 11/07/2024 Reported: 11/08/2024 Physician(s): DONNIE Quezada FNP Diagnosis: SOURCE OF SPECIMEN Imaged Thinprep Pap Test w/ Reflex HPV - Academic Services Coordinator Cytologic Material: STATEMENT OF ADEQUACY - Satisfactory for evaluation; endocervical/transformation zone component present GENERAL CATEGORIZATION: - Negative for intraepithelial lesion or malignancy KENNY Paniagua(ASCP) Report Electronically Reviewed and Signed Out By KENNY Paniagua(ASCP) 11/08/2024 14:50:54Specimen(s) Received: A: Imaged Thinprep Pap Test w/ Reflex HPV - Academic Services Coordinator Cytologic Material Clinical History: Menstrual History: Post-menopausal [...] determined by the Surgical Pathology Department at [facility] as part of an ongoing quality manager program and in compliance with federally mandated [...] characteristics determined by the Surgical Pathology Department [facility]. It has not been cleared or approved by the U. S. Food and Drug Administration. Tasha Whitten NP LAB CYTOLOGY ORDERABLES Final Re sult PATHOLOGY [address] [place], [place] [id number] * Dexa Axial Skeleton Bone Density 1 or 2 Site (11/19/2022 1:23 PM LADLE FILLER) Anatomical Region Laterality Modality Body N/A Other 11/20/2022 9:47 PM LADLE FILLER Narrative 11/20/2022 9:50 PM LADLE FILLER EXAM DESCRIPTION: DEXA AXIAL SKELETON BONE DENSITY 1 OR MORE SITES REASON FOR STUDY: 62 y/o year old F with given history of screening. Postmenopausal Population Health Manager/Model: BlogGlue SL (S/N [id number]) CLINICAL INFORMATION: Current height: 68 inches Maximum [...] David Clarke M.D. MF: ROEL Report ID: [id number] Reading Location: [address] Note David Clarke MD - 11/20/2022 EXAM DESCRIPTION: DEXA AXIAL SKELETON BONE DENSITY 1 OR MORE SITES REASON FOR STUDY: 62 y/o year old F with given history ofscreening. Postmenopausal Population Health Manager/Model: Oshiboree Discovery SL (S/N 51869) CLINICAL INFORMATION: Current height: 68 inches Maximum [...] David Clarke M.D. MF: ROEL Report ID: [id number] Reading Location: [place] [address] Tasha Whitten NP IMG DXA PROCEDURES Final Result * COLONOSCOPY (11/04/2020 10:00 AM LADLE FILLER) Anatomical Region Laterality Modality Other Narrative Procedure Note Bobo Resendez MD - 11/04/2020 10:00 AM CST [facility] Patient Name: Aury Moura Procedure Date: 11/04/2020 10:00AM Date of : 1960 Admit Type: Outpatient Age: 60 Gender: Female Attending MD: Bobo Resendez M.D. Room: [facility] ENDOSCOPY ROOM 2 Note Status: Finalized Patient [...] The scopewas passed under direct vision. The ColonoscopeCF-[id number] was introduced through the anus andadvanced to [...] malignant neoplasm of colon CPT copyright 2017 [employer]. All rights reserved. The codes documented in this report are preliminary and upon electrical systems design engineer reviewmay be revised to meet current compliance requirements. Recognized by the [place] [employer] for promoting quality in endoscopy Bobo Resendez MD ENDOSCOPY PROCEDURES Final Re sult * Hepatitis C (HCV) RNA PCR, quantitative (06/02/2019 1:34 PM CDT) HCV RNA qn Undetected Undetected IUnits/mL CECY PICKERING ([place]) Comment: Result in log IU/mL is Undetected. ADDITIONAL INFORMATION The quantification range of this assay is 15 to 100,000,000 IU/mL (1.18 log to 8.00 log IU/mL). Testing was performed using the ernie HCV test ([employer] with the ernie 6800 System. Test Performed by: [facility] - [address] [address] Blood specimen (specimen) 06/02/2019 1:34 PM CDT 06/02/2019 1:51 PM CDT Bobo Resendez MD LAB MICROBIOLOGY - GENERAL OR DERABLES Final Result CECY PICKERING (QUINCY) 1 [facility] Department [place] [address] from Last 3 Months or Most Recently Relevant to Health Maintenance Insurance [facility] [place] [address] Advance Directives For more information, please contact: [phone] * Full Code (Latest Code Status on File) Date Activated Date Inactivated Comments 11/04/2020 10:23 AM 11/04/2020 4:27 PM * Full Code Date Activated Date Inactivated Comments 11/04/2020 10:23 AM 11/04/2020 10:23 AM Care Teams Customizer Relationship Specialty Start Date End Date Ya Centeno NP [address] [place] [address] PCP - General Nurse Practitioner 10/20/24
--- OUTSIDE RECORDS SUMMARY | 2025-07-05 08:10 | XMS_ITS | Patient Health Record ---
Author Organization [facility] Address [address] [facility] [address] [facility], [place] [address] Care Team Providers Care Filbert Grower Name Role Phone Barry Chamorro Unavailable [phone] Migration, Provider Unavailable Unavailable Allergies Allergen (clinical drug ingredient) Drug/Non Drug Allergy documented on EMR Reaction Allergy Type Onset Date Status ciprofloxacin Cipro Unknown Drug Allergy Act sophia Reason For Referral No Information Medications Medication SIG (Take, Route, Frequency, Duration) Notes Start Date End Date Status ASTELIN 137 MCG/INH 2 SPRAY(S) INTRANASALLY BID; Duration: 30 DAY(S) *Please review for potential replacement for e-prescription and drug interaction check* 01/31/2020 Active EPIPEN 2-AUSTEN, RXBIN: [id number], RXPCN: [id number], RX GRP: [id number], PROFESSOR OF LITERACY: [id number], ID: [id number] 0.3 MG 0.3 MG INTRAMUSCULARLY ONCE; Duration: 1 DOSE(S) *Please review for potential replacement for e-prescription and drug interaction check* Active Immunizations Vaccine Route Administration Date Status Comme nts Influenza Unknown 12/03/2016 Administered Influenza Unknown 12/23/2016 Refused Problems Problem Type SNOMED Code ICD Code Onset Dates Problem Status W/U Status Risk Notes Problem 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, 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 confirmed Problem Allergic rhinitis caused by pollen (disorder) (48677330) Allergic rhinitis due to pollen (J30.1) Active confirmed Problem Neoplasm of uncertain behavior of skin (64852439) 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.5) Active confirmed Problem Bilateral tinnitus (6200806886587) Tinnitus, bilateral (H93.13) Active confirmed Problem Allergic rhinitis caused by animal hair and dander (817092019805307) Allergic rhinitis due to animal (cat) (dog) hair and dander (J30.81) Active confirmed Problem Sensorineural hearing loss of right ear with normal hearing on left side (disorder) (8005978952) Sensorineural hearing loss, unilateral, right ear, with unrestricted hearing on the contralateral side (H90.41) Active confirmed Problem Tinnitus (59525953) Tinnitus, right ear (H93.11) Active confirmed Encounters Encounter Location Date Provider Diagnosis [facility] Susan [address] [facility] [address] [place], [place] [address] 11/04/2024 Provider Migration Plan Of Treatment No Information Insurance Providers Payer Name Payer Address Payer Phone Subscriber Number Group Number Insured Name Patient Relationship to Insured Coverage Start Date Coverage End Date [employer] [address] [place] [address] [id number] Aury Moura Self - patient is the insured Medical (General) History Medical History History ICD Code eye, sinusitis, allergies, ear problems Surgical History Surgery Date(Month/Year)
--- OUTSIDE RECORDS SUMMARY | 2025-07-05 08:11 | XMS_ITS ---
Author Organization [facility] Address [address] [facility] [address] [place], [place] [address] Care Team Providers Care Casserole Preparer Name Role Phone Barry Chamorro Unavailable [phone] Migration, Provider Unavailable Unavailable Allergies Allergen (clinical drug ingredient) Drug/Non Drug Allergy documented on EMR Reaction Allergy Type Onset Date Status ciprofloxacin Cipro Unknown Drug Allergy Act sophia [facility] Encounter Medications Medication SIG (Take, Route, Frequency, Duration) Notes Start Date End Date Status ASTELIN 137 MCG/INH 2 SPRAY(S) INTRANASALLY BID; Duration: 30 DAY(S) *Please review for potential replacement for e-prescription and drug interaction check* 01/31/2020 Active EPIPEN 2-AUSTEN, RXBIN: [id number], RXPCN: PINO, RX GRP: [id number], RESIDENT INTERN: [id number], ID: [id number] 0.3 MG 0.3 MG INTRAMUSCULARLY ONCE; Duration: 1 DOSE(S) *Please review for potential replacement for e-prescription and drug interaction check* Active Encounters Encounter Location Date Provider Diagnosis [facility] [place] [id number] [id number] 11/04/2024 Provider Migration Plan Of Treatment No Information Progress Notes * Courtney MOURAOB:1960 (65 yo F)Acc No.[id number]:11/04/2024 Patient: Aury BURROWS Provider: Jose walden Migration :1960 A ge:64 Y S ex:Female Date:11/04/2024 Address:[address] [place], [place] [address] Subjective: * Chief Complaints: * 1 . Multum To [facility]pan Conversion Encounter. * Medical History: * Medications: T aking EPIPEN 2-AUSTEN, RXBIN: [id number], RXPCN: CAMELIAYALTY, RX GRP: [id number], RESIDENT INTERN: [id number], ID: [id number] 0.3 MG KIT 0.3 MG INTRAMUSCULARLY ONCE , Notes to Pharmacist: *Please review for potential replacement for e-prescription and drug interaction check*, Taking ASTELIN 137 MCG/INH SPRAY 2 SPRAY(S) INTRANASALLY BID , Notes to Pharmacist: *Please review for potential replacement for e-prescription and drug interaction check* * Allergies: C ipro. Objective: * Vitals: * Physical Examination: Assessment: Plan: * Treatment: * Images: * Electronic signature of Laura lynch Migration on 07/05/2025 at 08:11 AM CDT Sign off status: Pending * Provider: Jose walden Migration Date: 01/05/2024 Generated for Rossana galeano/Hammad/Frida on: 07/05/2025 08:11 AM CDT
--- OUTSIDE RECORDS SUMMARY | 2025-07-05 08:11 | XMS_ITS | Encounter Summary ---
Author Organization [facility] Healthcare Address [address] [place] [address] Care Team Providers Care Boat Pilot Name Role Phone No, Physician Primary Care Provider [phone] Tasha Whitten NP Primary Care Provider [phone] No, Physician Primary Care Provider [phone] Ya Centeno INFORMATION SYSTEMS SECURITY DEVELOPER Primary Care Provider [phone] Encounter Details Date Type Department Care Team (Late st Contact Info) Description 11/18/2022 Telephone [facility] [address] [place] [address] Chey Ramirez, RT Social History Tobacco Use [...] on file Legal Sex Female 11:28 PM MANAGER MANAGING Gender Identity Not on file Sexual Orientation Straight 05/24/2019 6: 10 PM CDT documented as of this encounter Plan of Treatment Not on file documented as of this encounter Visit Diagnoses Not on filedocumented in this encounter Care Teams Boat Pilot Relationship Specialty Start Date End Date No, Physician PCP - General 11/10/22 11/20/22 Tasha Whitten NP [address] [place] [address] [place] [address] PCP - General Obstetrics and Gynecology 11/21/2211/23 No, Physician PCP - General 12/20/23 10/19/24 Ya Centeno NP [address] [place] [address] PCP - General Nurse Practitioner 10/20/24 documented as of this encounter
--- OUTSIDE RECORDS SUMMARY | 2025-07-05 08:11 | XMS_ITS | Encounter Summary ---
Author Organization [facility] Address [address] [facility] [place] [address] Care Team Providers Care Copper Roller Handler Printing Name Role Phone Unavailable Primary Care Provider Unavailabl e Reason for Visit * Reason Onset Date Comments Concerns 03/14/2024 Encounter Details Date Type Department Care Team (Late st Contact Info) Description 03/14/2024 Telephone [facility] - E COMMERCE DIRECTOR [address] [facility] [address] [place] [address] Crystal Busby MD [address] [place] [address] Concerns Social History Tobacco Use [...] She would like it emailed to : [email or web address] Letter written and emailed. * Telephone Encounter [...] back to work. Thank You Bianca CB: [phone] documented in this encounter Plan of Treatment Not on file documented as of this encounter Visit Diagnoses Not on filedocumented in this encounter
--- OUTSIDE RECORDS SUMMARY | 2025-07-05 08:11 | XMS_ITS | Encounter Summary ---
Author Organization [facility] Address [address] [facility] [place] [address] Care Team Providers Care Radio Talk Show Host Name Role Phone Unavailable Primary Care Provider Unavailabl e Encounter Details Date Type Department Care Team (Late st Contact Info) Description 02/08/2024 Telemedicine [facility] - EMERGENCY MEDICAL TECHNICIAN BASIC [address] [place] [address] Crystal Busby MD [address] [place] [address] Social History Tobacco Use Types [...]
--- OUTSIDE RECORDS SUMMARY | 2025-07-05 08:11 | XMS_ITS | Clinical Summary ---
Author Organization [facility] Address [address] [facility] [place] [address] Care Team Providers Care Engineer Assistant Name Role Phone Unavailable Primary Care Provider Unavailabl e Source Comments [facility],non-owned Affiliates and Associated Physician Practices is amultiple site organization consisting of ambulatory clinics and hospital sitesin [place], [place], [place] and [place]. This disclosure is being madepursuant to the Care Everywhere program and may not contain all information available regarding this patient. Last updated 18.[facility] Allergies Active Allergy Reactions Criticality Noted Date [...] this topic Medical Devices Implanted Type Area Furniture Repairer Device Identifier Shelf Expiration Date Model / Serial / Lot Sys Ureth Supp Chandana Lynx Adv Spbc Implanted:Qty: 1 on 03/07/2024 by Crystal Busby MD at [facility] N/A: Vagina [employer] 06/22/2026 [id number] / / [id number] Insurance [facility] MEDICARE Advance Directives Documents on File Type Date Recorded Patient Collection Systems Modeler Expl anation Adv Directive/Living Will/POA 03/10/2024 8:21 PM
== END 2025-07-05 08:08 | disposition home or self-care (01) ==
LOC: ANHLAB 08:08
PROVIDERS: PCP Nurse Practitioner Adult Health; Visit Provider Internal Medicine
DX: E66.3 Overweight (principal); R79.89 Other specified abnormal findings of blood chemistry; E07.9 Disorder of thyroid, unspecified; E04.1 Nontoxic single thyroid nodule; E27.8 Other specified disorders of adrenal gland
CPT/HCPCS: 36415; 82533

== ENCOUNTER 2025-08-14 10:10 | Outpatient (CLI) | payer MEDICARE, OTHER, SELFPAY ==
--- OUTSIDE RECORDS SUMMARY | 2024-11-04 16:30 | XMS_ITS ---
Author Organization [facility] Address [address] [facility] [address] [place], [place] [id number] Care Team Providers Care Evaporator Supervisor Name Role Phone Barry Chamorro Unavailable [phone] Migration, Provider Unavailable Unavailable Allergies Allergen (clinical drug ingredient) Drug/Non Drug Allergy documented on EMR Reaction Allergy Type Onset Date Status ciprofloxacin Cipro Unknown Drug All[facility] Encounter Medications Medication SIG (Take, Route, Frequency, Duration) Notes Start Date End Date Status ASTELIN 137 MCG/INH SPRAY 2 SPRAY(S) INTRANASALLY BID; Duration: 30 DAY(S) *Please review for potential replacement for e-prescription and drug interaction check* 01/31/2020 Active EPIPEN 2-AUSTEN, RXBIN: [id number], RXPCN: PINO, RX GRP: [id number], SCUDDING INSPECTOR: [id number], ID: [id number] 0.3 MG KIT 0.3 MG INTRAMUSCULARLY ONCE; Duration: 1 DOSE(S) *Please review for potential replacement for e-prescription and drug interaction check* Active Encounters Encounter Location Date Provider Diagnosis [facility] [address] [facility] [address] [place], [place] [id number] 11/04/2024 Provider Migration Plan Of Treatment No Information Progress Notes * Courtney MOURAOB:1960 (65 yo F)Acc No.[id number]:11/04/2024 Patient: Tiny Randhawan Provider: Jose walden Migration :1960 A ge:64 Y S ex:Female Date:11/04/2024 Address:[address] [place] [address] Subjective: * Chief Complaints: * M ultum To Medis[facility] Conversion Encounter * Medications: T akingEPIPEN 2-AUSTEN, RXBIN: [id number], RXPCN: LOYALTY, RX GRP: [id number], SCUDDING INSPECTOR: [id number], ID: [id number] 0.3 MG KIT 0.3 MG INTRAMUSCULARLY ONCE , Notes to Pharmacist: *Please review for potential replacement for e-prescription and drug interaction check*ASTELIN 137 MCG/INH SPRAY 2 SPRAY(S) INTRANASALLY BID , Notes to Pharmacist: *Please review for potential replacement for e-prescription and drug interaction check*Taking EPIPEN 2-AUSTEN, RXBIN: [id number], RXPCN: LOYALTY, RX GRP: [id number], SCUDDING INSPECTOR: [id number], ID: [id number] 0.3 MG KIT 0.3 MG INTRAMUSCULARLY ONCE , Notes to Pharmacist: *Please review for potential replacement for e-prescription and drug interaction check*Taking ASTELIN 137 MCG/INH SPRAY 2 SPRAY(S) INTRANASALLY BID , Notes to Pharmacist: *Please review for potential replacement for e-prescription and drug interaction check* * Allergies: C ipro * Electronic signature of Prov jesur Migration on 08/14/2025 at 11:08 AM CDT Sign off status: Pending * Provider: Jose walden Migration Date: 01/05/2024 Generated for Rossana galeano/Hammad/Sailajaitting on: 08/14/2025 11:08 AM CDT
--- OUTSIDE RECORDS SUMMARY | 2025-08-14 11:08 | XMS_ITS | Clinical Summary ---
Author Organization [facility] Address [address] [place] [address] Care Team Providers Care Edge Inker Heels Name Role Phone Ya Centeno NP Primary Care Provider [phone] Allergies Active Allergy Reactions Criticality Noted Date [...] etiology. Assessment & Plan (11/06/2024 12:34 PM BRIDGES SUPERVISOR): States triamcinolone cream does help some. She would rather have cream instead of ointment, new prescription sent to pharmacy. Urge incontinence 09/28/2023 Skin hypopigmentation 09/28/2023 Hormone replacement therapy (HRT) 11/25/2021 Assessment & Plan (11/06/2024 12:26 PM BRIDGES SUPERVISOR): Risks and benefits of hormone replacement (HRT) [...] needed. Assessment & Plan (09/28/2023 10:11 AM BRIDGES SUPERVISOR): Patient states she does not need any [...] pharmacy. Assessment & Plan (11/25/2021 8:30 AM BRIDGES SUPERVISOR): Risks vs benefits of HRT discussed such [...] (10/01/2020): Added automatically from request for surgery [id number] Hepatitis C virus infection without hepatic coma [...] Encounters Date Type Department Care Team Description 08/08/2025 7:29 AM CDT - 08/08/2025 11:59 PM CDT Hospital Encounter [address] [address] Discharge Disposition: Discharge to home or self care 08/08/2025 7:14 AM CDT - 08/08/2025 11:59 PM CDT Hospital Encounter [facility] [address] [place] [address] Overweight; Other specified abnormal findings of blood chemistry; Nontoxic single thyroid nodule; Other specified disorders of adrenal gland Discharge Disposition: Discharge to home or self care from Last 3 Months Surgical History Surgery [...] on file Legal Sex Female 11:28 PM BRIDGES SUPERVISOR Gender Identity Female 08/11/2025 9:29 AM CDT Sexual Orientation Straight 05/24/2019 6: 10 PM CDT Obstetrics History Para Term AB IAB SAB Ectopic Multiple Livin g Live Births 3 2 2 1 Date Outcome GA Total Labor Labor/2nd/3rd Weight Sex Type Anes PTL Izabella A1 A5 Name Clin Term Term AB Last Filed Vital Signs Vital Sign Reading Time Taken Comments Blood Pressure 120/78 11/06/2024 9:21 AM BRIDGES SUPERVISOR Pulse 115 01/25/2023 12:25 PM BRIDGES SUPERVISOR Temperature 36.3 C (97.3 F) 01/25/2023 12:25 PM BRIDGES SUPERVISOR Respiratory Rate 16 01/25/2023 12:25 PM BRIDGES SUPERVISOR Oxygen Saturation 98% 11/04/2020 12:05 PM BRIDGES SUPERVISOR Inhaled Oxygen Concentration - - Weight 84.1 kg (185 lb 6.4 oz) 11/06/2024 9:21 A M BRIDGES SUPERVISOR Height 172.7 cm (5' 8) 12/18/2024 1:06 PM BRIDGES SUPERVISOR Body Mass Index 28.19 11/06/2024 9:21 AM BRIDGES SUPERVISOR Plan of Treatment Health Maintenance Due Date Last Done Comments Hepatitis B Screening 1977 Pneumococcal vaccine 65+ (1 of 2 - PCV) 1978 DTaP/Tdap/Td Vaccine (1 - Tdap) 04/02/2005 5 Zoster Vaccine (1 of 2) 2009 Fall Risk Assessment 11/04/2021 11/04/2020 Well Visit 65+ 09/28/2024 09/28/2023, 11/0 11/2021, 09/19/2021, Additional history exists Osteoporosis Screening-Bone Density Scan 11/19/2024 11/19/2022 Covid-19 Vaccine (5 - 2024-2 6 season) 2025 07/31/2022, 09/17/2021, 01/10/2021, Additional history exists Influenza Vaccine (#1) 2025 12/03/2016 Depression Screening [...] Procedure Name Priority Date/Time Associated Diagnosis Comments NM THYROID IMAGING WITH UPTAKE(S) Schedule Routine, Read Routine (OP Routine) 08/08/2025 2:44 PM CDT Overweight Other specified abnormal findings of blood chemistry Nontoxic single thyroid nodule Other specified disorders of adrenal gland DIAGNOSTIC MAMMOGRAM BILATERAL W BOLIVAR Schedule Routine, Read Routine (OP Routine) 12/18/2024 1:13 PM BRIDGES SUPERVISOR Abnormal mammogram of both breasts PAP WITH REFLEX TO HIGH RISK HPV Routine 11/06/2024 11:35 AM BRIDGES SUPERVISOR Well woman exam DEXA AXIAL SKELETON BONE DENSITY 1 OR MORE SITES Schedule Routine, Read Routine (OP Routine) 11/19/2022 1:23 PM BRIDGES SUPERVISOR Screening for osteoporosis COLONOSCOPY 11/04/2020 10:00 AM BRIDGES SUPERVISOR HEPATITIS C RNA, QUANTITATIVE, PCR Routine 06/02/2019 1:34 PM CDT Hepatitis C virus infection without hepatic coma, unspecified chronicity from Last 3 Months or Most Recently Relevant to Health Maintenance Results * NM Thyroid Imaging with Uptakes (08/08/2025 2:44 PM CDT) Anatomical Region Laterality Modality N/A Nuclear Medicine 08/08/2025 4:10 PM CDT Narrative 08/08/2025 4:15 PM CDT EXAM DESCRIPTION: NM THYROID IMAGING WITH UPTAKE(S) RADIOPHARMACEUTICAL: 264 uCi I-123 (sodium iodide) p.o. REASON FOR STUDY: Hyperthyroidism. TECHNIQUE: Delayed multiplanar scintigrams were obtained. STARTED DATE: 08/08/2025 COMPARISON: None FINDINGS: There is asymmetrically increased uptake within the left upper pole. The 6-hour radioactive iodine uptake is 35% (normal range 4-19%). IMPRESSION: 1. Abnormal 6 hour radioiodine uptake of 35%. 2. Asymmetrically increased focal uptake within the upper pole of the left antonieta thyroid may represent a toxic autonomous nodule. THIS IS AN ELECTRONICALLY VERIFIED FINAL REPORT 08/08/2025 4:15 PM - Electronically signed by Fede Diane M.D. LB: LB Report ID: [id number] Reading Location: [id number] Procedure Note Fede Diane MD - 08/08/2025 EXAM DESCRIPTION: NM THYROID IMAGING WITH UPTAKE(S) RADIOPHARMACEUTICAL: 264 uCi I-123 (sodium iodide) p.o. REASON FOR STUDY: Hyperthyroidism. TECHNIQUE: Delayed multiplanar scintigrams were obtained. STARTED DATE: 08/08/2025 COMPARISON: None FINDINGS: There is asymmetrically increased uptake within the left upper pole.The 6-hour radioactive iodine uptake is 35% (normal range 4-19%). IMPRESSION: 1. Abnormal 6 hour radioiodine uptake of 35%. 2. Asymmetrically increased focal uptake within the upper pole of theleft antonieta thyroid may represent a toxic autonomous nodule. THIS IS AN ELECTRONICALLY VERIFIED FINAL REPORT 08/08/2025 4:15 PM - Electronically signed by Fede Diane M.D. LB: LB Report ID: [id number] Reading Location: [id number] us Jonny Vuong MD IM NM PROCEDURES Final Resu lt * Diagnostic Mammogram Bilateral W [place] (12/18/2024 1:13 PM BRIDGES SUPERVISOR) Anatomical Region Laterality Modality Breast Bilateral Mammography 12/18/2024 4:54 PM BRIDGES SUPERVISOR Impressions 12/18/2024 4:54 PM BRIDGES SUPERVISOR The findings are considered benign. No imaging findings to suggest malignancy are seen. The patient may return to screening mammography as per ACR guidelines. OVERALL FINAL ASSESSMENT: BI-RADS Category 2: Benign. Electronically signed by: Rafaela Gary M.D. Narrative 12/18/2024 4:54 PM BRIDGES SUPERVISOR EXAMINATION: BILATERAL DIGITAL DIAGNOSTIC MAMMOGRAM INCLUDING CAD [...] which previously contained echoes. us Tasha Whitten MANUFACTURING OPERATIONS MANAGER IMG MAMMO PROCEDURES Final Resul t * Pap with reflex to High Risk HPV and Genotyping (Cytology Component) (11/06/2024 11:35 AM BRIDGES SUPERVISOR) Thin prep (Pap test) 11/06/2024 11:35 AM BRIDGES SUPERVISOR 11/06/2024 11:35 AM BRIDGES SUPERVISOR Narrative PATHOLOGY - 11/08/2024 2:50 PM BRIDGES SUPERVISOR [facility] Department of Pathology [address] [place] [address] Final Report Note to Patients: This report [...] the details. Patient Name: AURY MOURA Address: [address] [place] [address]- Gender: F : 1960 (Age: 64) Service: Location: N : [id number] [facility] #: [id number] Patient Type: SPECIMEN Taken: 11/06/2024 Received: 11/06/2024 Accessioned:: 11/07/2024 Reported: 11/08/2024 Physician(s): DONNIE Quezada FNP Diagnosis: SOURCE OF SPECIMEN Imaged Thinprep Pap Test w/ Reflex HPV - Weather Algorithm Scientist Cytologic Material: STATEMENT OF ADEQUACY - Satisfactory for evaluation; endocervical/transformation zone component present GENERAL CATEGORIZATION: - Negative for intraepithelial lesion or malignancy KENNY Paniagua(ASCP) Report Electronically Reviewed and Signed Out By KENNY Paniagua(ASCP) 11/08/2024 14:50:54Specimen(s) Received: A: Imaged Thinprep Pap Test w/ Reflex HPV - Weather Algorithm Scientist Cytologic Material Clinical History: Menstrual History: Post-menopausal [...] determined by the Surgical Pathology Department at [facility] as part of an ongoing quality assurance coach program and in compliance with federally mandated [...] characteristics determined by the Surgical Pathology Department [facility]. It has not been cleared or approved by the U. S. Food and Drug Administration. Tasha Whitten NP LAB CYTOLOGY ORDERABLES Final Re sult PATHOLOGY [address] [place] [address] * Dexa Axial Skeleton Bone Density 1 or 2 Site (11/19/2022 1:23 PM BRIDGES SUPERVISOR) Anatomical Region Laterality Modality Body N/A Other 11/20/2022 9:47 PM BRIDGES SUPERVISOR Narrative 11/20/2022 9:50 PM BRIDGES SUPERVISOR EXAM DESCRIPTION: DEXA AXIAL SKELETON BONE DENSITY 1 OR MORE SITES REASON FOR STUDY: 62 y/o year old F with given history of screening. Postmenopausal Biomedical Analytical Scientist/Model: Andre Phillipe Discovery SL ([id number]/N [id number]) CLINICAL INFORMATION: Current height: 68 inches Maximum [...] David Clarke M.D. MF: ROEL Report ID: [id number] Reading Location: [place] [address] Procedure Note David Clarke MD - 11/20/2022 EXAM DESCRIPTION: DEXA AXIAL SKELETON BONE DENSITY 1 OR MORE SITES REASON FOR STUDY: 62 y/o year old F with given history ofscreening. Postmenopausal Biomedical Analytical Scientist/Model: Andre Phillipe Discovery SL ([id number]/N [id number]) CLINICAL INFORMATION: Current height: 68 inches Maximum [...] David Clarke M.D. MF: ROEL Report ID: [id number] Reading Location: [id number] us Tasha Whitten MANUFACTURING OPERATIONS MANAGER IMG DXA PROCEDURES Final Result * COLONOSCOPY (11/04/2020 10:00 AM BRIDGES SUPERVISOR) Anatomical Region Laterality Modality Other Narrative Procedure Note Bobo Resendez MD - 11/04/2020 10:00 AM CST [facility] Patient Name: Aury Moura Procedure Date: 11/04/2020 10:00AM Date of : 1960 Admit Type: Outpatient Age: 60 Gender: Female Attending MD: Bobo Resendez M.D. Room: [facility] ENDOSCOPY ROOM 2 Note Status: Finalized Patient Profile: Refer to note in patient chart for documentation of history and physical. Procedure: Colonoscopy Indications: Screening for colorectal malignant neoplasm, This is the patient's first colonoscopy Referring MD: Tasha Whitten, F.N.PHarrison Providers: Bobo Resendez M.D. Impression: - Hemorrhoids [...] The scopewas passed under direct vision. The [id number] was introduced through the anus andadvanced to [...] malignant neoplasm of colon CPT copyright 2017 [employer]. All rights reserved. The codes documented in this report are preliminary and upon integration project manager reviewmay be revised to meet current compliance requirements. Recognized by the [employer] for promoting quality in endoscopy us Bobo Resendez MD ENDOSCOPY PROCEDURES Final Re sult * Hepatitis C (HCV) RNA PCR, quantitative (06/02/2019 1:34 PM CDT) [facility] Signature HCV RNA qn Undetected Undetected IUnits/mL CECY PICKERING (ZULMA) Comment: Result in log IU/mL is Undetected. ADDITIONAL INFORMATION The quantification range of this assay is 15 to 100,000,000 IU/mL (1.18 log to 8.00 log IU/mL). Testing was performed using the ernie HCV test ([employer] with the ernie SportsBoard0 System. Test Performed by: [facility] [address] [place] [id number] Blood specimen (specimen) 06/02/2019 1:34 PM CDT 06/02/2019 1:51 PM CDT Bobo Resendez MD LAB MICROBIOLOGY - GENERAL OR DERABLES Final Result CECY LADAN (ZULMA) [address] [facility] Department [place] [address] from Last 3 Months or Most Recently Relevant to Health Maintenance Insurance [employer] OPEN ACCESS MEDICARE [facility] [address] Advance Directives For more information, please contact: [phone] * Full Code (Latest Code Status on File) Date Activated Date Inactivated Comments 11/04/2020 10:23 AM 11/04/2020 4:27 PM * Full Code Date Activated Date Inactivated Comments 11/04/2020 10:23 AM 11/04/2020 10:23 AM Care Teams Edge Inker Heels Relationship Specialty Start Date End Date Ya Centeno NP [address] [place] [address] PCP - General Nurse Practitioner 10/20/24
--- OUTSIDE RECORDS SUMMARY | 2025-08-14 11:09 | XMS_ITS | Encounter Summary ---
Author Organization [facility] Healthcare Address [address] [place] [address] Care Team Providers Care Gm Name Role Phone No, Physician Primary Care Provider [phone] Tasha Whitten NP Primary Care Provider [phone] No, Physician Primary Care Provider [phone] Ya Centeno STATIONARY ENGINEER APPRENTICE Primary Care Provider [phone] Encounter Details Date Type Department Care Team (Late st Contact Info) Description 11/18/2022 Telephone [facility] [address] [place] [address] Chey Ramirez, RT Social History Tobacco Use [...] on file Legal Sex Female 11:28 PM FINANCIAL SERVICES OFFICER Gender Identity Female 08/11/2025 9:29 AM CDT Sexual Orientation Straight 05/24/2019 6: 10 PM CDT documented as of this encounter Plan of Treatment Not on file documented as of this encounter Visit Diagnoses Not on filedocumented in this encounter Care Teams Gm Relationship Specialty Start Date End Date No, Physician PCP - General 11/10/22 11/20/22 Tasha Whitten NP [address] [place] [address] [address] [address] PCP - General Obstetrics and Gynecology 11/21/2211/23 No, Physician PCP - General 12/20/23 10/19/24 Ya Centeno NP [address] [place] [address] PCP - General Nurse Practitioner 10/20/24 documented as of this encounter
--- OUTSIDE RECORDS SUMMARY | 2025-08-14 11:09 | XMS_ITS | Patient Health Record ---
Author Organization [facility] Address [address] [facility] [address] [facility] [address] Care Team Providers Care Crime Scene Specialist Name Role Phone Barry Chamorro Unavailable [phone] Migration, Provider Unavailable Unavailable Allergies Allergen (clinical [...] interaction check* 01/31/2020 Active EPIPEN 2-AUSTEN, RXBIN: [id number], RXPCN: LOYALTY, RX GRP: [id number], GATE OPERATOR: [id number], ID: [id number] 0.3 MG KIT 0.3 MG INTRAMUSCULARLY ONCE; Duration: 1 DOSE(S) *Please review for potential replacement for e-prescription and drug interaction check* Active Immunizations Vaccine Route Administration Date Status Comme nts Influenza Unknown 12/03/2016 Administered Influenza Unknown 12/23/2016 Refused Problems Problem Type SNOMED Code ICD Code Onset Dates Problem Status W/U Status Risk Notes Problem 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, 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 confirmed Problem Allergic rhinitis caused by pollen (disorder) (28519375) Allergic rhinitis due to pollen (J30.1) Active confirmed Problem Neoplasm of uncertain behavior of skin (15422591) 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.5) Active confirmed Problem Bilateral tinnitus (1161783162835) Tinnitus, bilateral (H93.13) Active confirmed Problem Allergic rhinitis caused by animal hair and dander (263484643160968) Allergic rhinitis due to animal (cat) (dog) hair and dander (J30.81) Active confirmed Problem Sensorineural hearing loss of right ear with normal hearing on left side (disorder) (0515466163) Sensorineural hearing loss, unilateral, right ear, with unrestricted hearing on the contralateral side (H90.41) Active confirmed Problem Tinnitus (83822098) Tinnitus, right ear (H93.11) Active confirmed Encounters Encounter Location Date Provider Diagnosis [facility] Susan [address] [place], [place] [id number] 11/04/2024 Provider Migration Plan Of Treatment No Information Insurance Providers Payer Name Payer Address Payer Phone Subscriber Number Group Number Insured Name Patient Relationship to Insured Coverage Start Date Coverage End Date [employer] [address] [place] [address] [id number] Aury Moura Self - patient is the insured Medical (General) History Medical History History ICD Code eye, sinusitis, allergies, ear problems Surgical History Surgery Date(Month/Year)
[2025-08-14 12:01] LABS: Thyroid Stimulating Hormone < 0.015 uIU/mL (0.465-4.680); Total Triiodothyronine (T3) 1.12 NG/ML (0.82-1.58)
[2025-08-14 12:29] LABS: Free T4 Free Thyroxine 0.99 ng/dL (0.78-2.19)
== END 2025-08-14 10:11 | disposition home or self-care (01) ==
LOC: ANHLAB 10:18
PROVIDERS: PCP Nurse Practitioner Adult Health; Visit Provider Internal Medicine
DX: E05.90 Thyrotoxicosis, unspecified without thyrotoxic crisis or storm (principal); E66.3 Overweight
CPT/HCPCS: 36415; 84439; 84443; 84480

== ENCOUNTER 2025-09-14 10:04 | Outpatient (CLI) | payer MEDICARE, OTHER, SELFPAY ==
--- OUTSIDE RECORDS SUMMARY | 2024-11-04 16:30 | XMS_ITS ---
Author Organization [facility] Address [address] [facility] [address] [place], [place] [id number] Care Team Providers Care Bmx Rider Name Role Phone Barry Chamorro Unavailable [phone] Migration, Provider Unavailable Unavailable Allergies Allergen (clinical drug ingredient) Drug/Non Drug Allergy documented on EMR Reaction Allergy Type Onset Date Status ciprofloxacin Cipro Unknown Drug Allergy Act [facility] Encounter Medications Medication SIG (Take, Route, Frequency, Duration) Notes Start Date End Date Status ASTELIN 137 MCG/INH SPRAY 2 SPRAY(S) INTRANASALLY BID; Duration: 30 DAY(S) *Please review for potential replacement for e-prescription and drug interaction check* 01/31/2020 Active EPIPEN 2-AUSTEN, RXBIN: [id number], RXPCN: PINO, RX GRP: [id number], LINE DANCER: [id number], ID: [id number] 0.3 MG KIT 0.3 MG INTRAMUSCULARLY ONCE; Duration: 1 DOSE(S) *Please review for potential replacement for e-prescription and drug interaction check* Active Encounters Encounter Location Date Provider Diagnosis [facility] [address] [facility] [address] [place], [place] [id number] 11/04/2024 Provider Migration Plan Of Treatment No Information Progress Notes * Courtney MOURAOB:1960 (65 yo F)Acc No.[id number]:11/04/2024 Patient: Tiny Randhawan Provider: Jose walden Migration :1960 A ge:64 Y S ex:Female Date:11/04/2024 Address:[address] [place] [address] Subjective: * Chief Complaints: * M ultum To Medispan Conversion Encounter * Medications: T akingEPIPEN 2-AUSTEN, RXBIN: [id number], RXPCN: LOYALTY, RX GRP: [id number], LINE DANCER: [id number], ID: [id number] 0.3 MG KIT 0.3 MG INTRAMUSCULARLY ONCE , Notes to Pharmacist: *Please review for potential replacement for e-prescription and drug interaction check*ASTELIN 137 MCG/INH SPRAY 2 SPRAY(S) INTRANASALLY BID , Notes to Pharmacist: *Please review for potential replacement for e-prescription and drug interaction check*Taking EPIPEN 2-AUSTEN, RXBIN: [id number], RXPCN: LOYALTY, RX GRP: [id number], LINE DANCER: [id number], ID: [id number] 0.3 MG KIT 0.3 MG INTRAMUSCULARLY ONCE , Notes to Pharmacist: *Please review for potential replacement for e-prescription and drug interaction check*Taking ASTELIN 137 MCG/INH SPRAY 2 SPRAY(S) INTRANASALLY BID , Notes to Pharmacist: *Please review for potential replacement for e-prescription and drug interaction check* * Allergies: C ipro * Electronic signature of Prov cris Migration on 09/14/2025 at 10:27 AM CDT Sign off status: Pending * Provider: Jose walden Migration Date: 01/05/2024 Generated for Rossana galeano/Hammad/Frida on: 10:27 AM CDT
--- OUTSIDE RECORDS SUMMARY | 2025-09-14 10:28 | XMS_ITS | Patient Health Record ---
Author Organization [facility] Address [address] [facility] [address] [facility], [place] [id number] Care Team Providers Care Lumber Material Handler Name Role Phone Barry Chamorro Unavailable [phone] Migration, Provider Unavailable Unavailable Allergies Allergen (clinical [...] interaction check* 01/31/2020 Active EPIPEN 2-AUSTEN, RXBIN: [id number], RXPCN: [id number], RX GRP: [id number], SERVICER COIN MACHINES: [id number], ID: [id number] 0.3 MG KIT 0.3 MG INTRAMUSCULARLY ONCE; Duration: 1 DOSE(S) *Please review for potential replacement for e-prescription and drug interaction check* Active Immunizations Vaccine Route Administration Date Status Comme nts Influenza Unknown 12/03/2016 Administered Influenza Unknown 12/23/2016 Refused Problems Problem Type SNOMED Code ICD Code Onset Dates Problem Status W/U Status Risk Notes Problem Neoplastic disease of uncertain behavior (453679758) Neoplasm of uncertain behavior, 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 confirmed Problem Allergic rhinitis caused by pollen (disorder) (18838755) Allergic rhinitis due to pollen (J30.1) Active confirmed Problem Neoplasm of uncertain behavior of skin (90228755) 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.5) Active confirmed Problem Bilateral tinnitus (9066651053660) Tinnitus, bilateral (H93.13) Active confirmed Problem Allergic rhinitis caused by animal hair and dander (700267625600807) Allergic rhinitis due to animal (cat) (dog) hair and dander (J30.81) Active confirmed Problem Sensorineural hearing loss of right ear with normal hearing on left side (disorder) (0743750248) Sensorineural hearing loss, unilateral, right ear, with unrestricted hearing on the contralateral side (H90.41) Active confirmed Problem Tinnitus (03823570) Tinnitus, right ear (H93.11) Active confirmed Encounters Encounter Location Date Provider Diagnosis [facility] Susan [address] [place], [place] [id number] 11/04/2024 Provider Migration Plan Of Treatment No Information Insurance Providers Payer Name Payer Address Payer Phone Subscriber Number Group Number Insured Name Patient Relationship to Insured Coverage Start Date Coverage End Date [employer] [address] [place] [address] [id number] Aury Moura Self - patient is the insured Medical (General) History Medical History History ICD Code eye, sinusitis, allergies, ear problems Surgical History Surgery Date(Month/Year)
--- OUTSIDE RECORDS SUMMARY | 2025-09-14 10:28 | XMS_ITS | Encounter Summary ---
Author Organization [facility] Address [address] [facility] [place] [address] Care Team Providers Care Leasing Representative Name Role Phone Unavailable Primary Care Provider Unavailabl e Reason for Visit * Reason Onset Date Comments Concerns 03/14/2024 Encounter Details Date Type Department Care Team (Late st Contact Info) Description 03/14/2024 Telephone [facility] - ENVIRONMENTAL ANALYST [address] [facility] [address] [place] [address] Crystal Busby MD [address] [place] [address] Concerns Social History Tobacco Use [...] She would like it emailed to : [email or web address] Letter written and emailed. * Telephone Encounter [...] back to work. Thank You Bianca CB: [phone] documented in this encounter Plan of Treatment Not on file documented as of this encounter Visit Diagnoses Not on filedocumented in this encounter
--- OUTSIDE RECORDS SUMMARY | 2025-09-14 10:28 | XMS_ITS | Encounter Summary ---
Author Organization [facility] Address [address] [place] [address] Care Team Providers Care Cable Ferry Operator Name Role Phone Unavailable Primary Care Provider Unavailabl e Encounter Details Date Type Department Care Team (Late st Contact Info) Description 02/08/2024 Telemedicine [facility] - BEVEL GEAR GENERATOR OPERATOR [address] [place] [address] Crystal Busby MD [address] [place] [address] Social History Tobacco Use Types [...]
--- OUTSIDE RECORDS SUMMARY | 2025-09-14 10:28 | XMS_ITS | Clinical Summary ---
Author Organization [facility] Address [address] [facility] [place] [address] Care Team Providers Care Extension Forester Name Role Phone Unavailable Primary Care Provider Unavailabl e Source Comments [facility],non-owned Affiliates and Associated Physician Practices is amultiple site organization consisting of ambulatory clinics and hospital sitesin [place], [place], [place] and [place]. This disclosure is being madepursuant to the Care Everywhere program and may not contain all information available regarding this patient. Last updated 18.[facility] Allergies Active Allergy Reactions Criticality Noted Date [...] CT COLONOGRAPHY - COLON CA SCREENING 1959 FIT - COLON CA SCREENING 1959 FLEX SIG - COLON CA SCREENING 1959 LIPID TESTING 1959 MEDICARE AWV 12 MONTHS 1959 HEPATITIS C SCREENING 05/29/1977 DTAP/TDAP/TD VACCINES (1 - Tdap) 1978 PNEUMOCOCCAL VACCINE 50+ (1 of 2 - PCV) 1978 ZOSTER VACCINE (1 of 2) 2009 SCREENING FOR DIABETES 02/10/2024 DEPRESSION SCREENING 11/22/2024 03/29/2024 COVID-19 VACCINE ( season) 2025 07/31/2022, 09/17/2021, 01/10/2021, Additional history exists INFLUENZA VACCINE (#1) 2025 MAMMOGRAM 12/15/2025 12/15/2023, [...] this topic Medical Devices Implanted Type Area Cable Armorer Operator Device Identifier Shelf Expiration Date Model / Serial / Lot Sys Ureth Supp Chandana Lynx Adv Spbc Implanted:Qty: 1 on 03/07/2024 by Crystal Busby MD at [facility] N/A: [employer] [facility] 06/22/2026 [id number] / / [id number] Insurance [facility] MEDICARE Advance Directives Documents on File Type Date Recorded Patient Protective Signal Operations Supervisor Expl anation Adv Directive/Living Will/POA 03/10/2024 8:21 PM
[2025-09-14 11:12] LABS: Free T4 Free Thyroxine 0.79 ng/dL (0.78-2.19)
[2025-09-14 11:28] LABS: Thyroid Stimulating Hormone 0.259 uIU/mL (0.465-4.680); Total Triiodothyronine (T3) 1.07 NG/ML (0.82-1.58)
== END 2025-09-14 10:05 | disposition home or self-care (01) ==
LOC: ANHLAB 10:09
PROVIDERS: PCP Nurse Practitioner Adult Health; Visit Provider Internal Medicine
DX: E05.90 Thyrotoxicosis, unspecified without thyrotoxic crisis or storm (principal); E66.3 Overweight; R79.89 Other specified abnormal findings of blood chemistry; E07.9 Disorder of thyroid, unspecified; E04.1 Nontoxic single thyroid nodule; E27.8 Other specified disorders of adrenal gland
CPT/HCPCS: 36415; 84439; 84443; 84480